=== PATIENT | male | born 1940 | race Caucasian/White ===

== ENCOUNTER 2018-01-23 05:29 | Inpatient (IN) | payer MEDICARE, SELFPAY ==
[2017-12-31 10:06] VITALS: BP 140/73; PULSE 64; RESP 16; TEMP 36.6; O2SAT 98; BMI 31.5
--- NOTE | 2017-12-31 10:18 | SDCEKG_ITS ---
Test Reason : Blood Pressure : / mmHG Vent. Rate : 063 BPM Atrial Rate : 063 BPM P-R Int : 212 ms QRS Dur : 100 ms QT Int : 418 ms P-R-T Axes : 043 054 040 degrees QTc Int : 427 ms Sinus rhythm with 1st degree A-V block Abnormal ECG Confirmed by VIBHA ALSTON, EMILEE ([id number]), purchasing expeditor JAVIER LUONG ([id number]) on 01/04/2018 1:35:30 PM Referred By: Henry Young Confirmed By:EMILEE DUNNE MD
[2017-12-31 10:54] LABS: Absolute Lymphocyte Count 1.35 X10^3/ul (0.83-4.51); Absolute Neutrophil Count 5.1 X10^3/uL (2.0-7.7); Basophil# 0.02 X10^3/uL; Basophil% 0.3 % (0-1); Eosinophil# 0.12 X10^3/uL; Eosinophils% 1.6 % (0-5); Hemoglobin 13.7 g/dl (13.0-16.5); Lymphocyte # 1.35 X10^3/ul (4.0); Lymphocyte % 18.4 % (19-41); Mean Corp Hgb Conc 34.3 g/gl (32-36); Mean Corpuscular Hgb 31.9 pg (27.0-32.0); Mean Platelet Vol. 9.8 fl (6.2-12.0); Monocyte# 0.74 X10^3/uL; Monocyte% 10.1 % (0-10); Neutrophil # 5.08 X10^3/uL (2.7-7.7); Neutrophil % 69.5 % (47-70); Platelet Count 262 K/mm3 (150-450); RBC Distribution Width CV 13.8 % (11.6-14.6); RBC Distribution Width SD 45.9 fl (35.1-43.9); White Blood Count 7.3 K/mm3 (4.4-11.0)
[2017-12-31 10:57] LABS: POSITIVE COUNT NO; POSITIVE DIFFERENTIAL NO; POSITIVE MORPHOLOGY NO
[2017-12-31 11:19] LABS: Anion Gap 6 (5-15); BUN 30 mg/dL (7-18); BUN/Creat Ratio 33.6 RATIO (10-20); Calcium,Total 8.5 mg/dL (8.5-10.1); Chloride 108 mmol/L (98-107); Creatinine, Serum 0.89 mg/dL (0.70-1.30); EST Glomerular Filtration Rate 88 mL/min (>60); Est Glom Filt Rate - Afr Amer 106 mL/min (>60); Estimated Creatinine Clearance 72.91 ml/min; Glucose 91 mg/dL (74-106); Potassium 3.6 mmol/L (3.5-5.1); Sodium Level 140 mmol/L (136-145)
--- NOTE | 2018-01-01 20:39 | PCM.HP.BLA ---
History and Physical DATE OF SURGERY: 01/23/2018 SCHEDULED PROCEDURE: Left Total Knee Arthroplasty HISTORY OF PRESENT ILLNESS: This is a 77-year-old male who is been having ongoing pain in bilateral knees for the past several years. He states it is been progressively becoming worse. Patient's pain is aching in bilateral knees. It is increased with going up and down stairs, walking any amount of distance. Patient does complain of startup pain. Pain is over the medial joint line. Patient has difficult time with walking with activities of daily living. Patient has tried conservative measures consisting of rest with minimal relief. He has tried elevation with no relief in symptoms. Patient has been through formal physical therapy and home exercises with no relief in symptoms. He has been on oral medications consisting of glucosamine/chondroitin with no relief and symptom. He denies previous surgery on bilateral knees. Patient has been using a cane for ambulatory assistance for the past 1 year. He has also tried a brace with no relief in symptoms. Left total hip arthroplasty in June 2017 and is doing well. He did have postoperative urinary retention. Patient does have a history of hypertension as well as blood clot approximately 10 years ago when he had his right total hip replaced. He currently denies any chest pain, shortness of breath, fevers chills, recent infections. We are obtaining surgical clearance from patient's primary care physician Dr. Camejo. After failing conservative measures and discussing all treatment options patient would like to proceed with a left total knee arthroplasty. He is also planning on undergoing a right total knee arthroplasty in February 2018. REVIEW OF SYSTEMS: ROS: Const: Denies change in appetite, fever,or weight change. CV: Denies chest pain, heart murmur and irregular heartbeat. Resp: Denies cough, pneumonia, SOB, tuberculosis and wheezing. GI: Denies constipation, diarrhea, difficulty swallowing, heartburn, nausea, bloody stools and vomiting. : Urinary: denies incontinence. Musculo: Reports limp and trouble walking, but denies leg swelling and weakness. Skin: Denies Raynaud's, history of shingles and tattoo. Neuro: Denies ambulatory dysfunction, dizziness, numbness/tingling and tremor. Psych: Denies anxiety, insomnia and stress. Frederick/Lymph: Denies anemia, bleeding/bruising tendency and past transfusion. Reviewed, no changes. PAST MEDICAL HISTORY: Advance Care Plan: No Advance Directives Effective Date: 05/24/2017 PMH: Medical Problems: High Blood Pressure, Hypercholesterolemia, History Of Phlebitis Accidents: None Surgical Hx: Hernia Repair, Hip Replacement Rt Hip Replacement LT - (06/12/2017) [email or web address] Anesthesia Complications: None Assistive Devices: Cane, Glasses - READING Reviewed, no changes. SOCIAL HISTORY: SH: Marital: .Occupation: Retired.Work Status: Retired.Hand Dominance: Right-handed. Personal Habits: Cigarette Use: Never Smoked Cigarettes.Alcohol: Denies use.Drug Use: Denies Use.Enjoy Exercising: Exercises 1-3 x/month. Reviewed, no changes. VITALS: Ht: 68.5 Wt: 216lb Wt k.978 BMI: 32.4 BP: 132/82 Pulse: 68 Resp: 20 T: 97.3 T: 36.3C ALLERGIES: No Known Drug Allergy MEDICATIONS: Lisinopril-Hydrochlorothiazide 20-25 mg 1 by mouth every day, Lovastatin 20 mg 1 tab PO daily, Flomax 0.4 mg 1 cap PO daily PRE-OP EXAM: General appearance:NORMAL Other: Eyes: Conjunctivae and lids: NORMAL Pupils: ERR Ears, Nose, Mouth, and Throat: NORMAL Other: Inspection of lips, teeth and gums: NORMAL Other: Neck: Examination of neck: no masses noted. Respiratory: Assessment of respiratory effort: NORMAL Other: Auscultation of lungs: clear to auscultation no wheezes, rhonchi or rales. Cardiovascular: Auscultation of heart: regular rate and rhythm, no murmurs, gallops or rubs. Exam of carotid arteries: NORMAL Other: Gastrointestinal: Exam of abdomen: soft, nontender, nondistended bowel sounds present. PHYSICAL EXAMINATION: Examination of the left knee is cold to touch without erythema. Patient does walk with an antalgic gait. He has tenderness to palpation over the medial joint line. Patient does have varus alignment. Range of motion left knee: Lacks 10 of full extension to 120 of flexion. Stable to varus and valgus stress test. Sensation intact to light touch. Neurovascularly intact. IMAGING STUDIES: X-rays of bilateral knees reveals varus alignment with medial joint space narrowing, subchondral sclerosis, and osteophyte formation consistent with severe osteoarthritis. Bilateral knee show bony erosion and medial compartment most severe in the left with tongue and groove erosions. IMPRESSION: 1. Severe left knee osteoarthritis 2. Severe right knee osteoarthritis 3. Hypertension 4. History of blood clot 10 years ago PLAN: Dr. Young did discuss and review with the patient all treatment options including surgical versus nonsurgical options. Patient does wish to proceed with the above-stated procedure. Potential risks, benefits, and complications of the procedure were discussed in detail including but not limited to , infection, nerve and blood vessel damage, persistent pain, numbness, tingling, paresthesias, blood clot, pulmonary embolism, and requirement for possible further surgery. The patient expressed full understanding and has no further questions for the doctor. Patient does agree to proceed with the above-stated procedure and has signed the surgery consent form. ___ I have re-examined the patient. There are no clinical changes since date of exam. ___ See progress notes for changes. ___ Dictated on admission Date: Time: Signature:
--- NOTE | 2018-01-16 13:51 | CASEMGMT ---
Attempted to contact patient regarding discharge needs after upcoming surgery. No answer, message left on home phone answering machine. Latrice Leggett LPN Clinical Support
--- NOTE | 2018-01-21 13:41 | CASEMGMT ---
Rec'd return call from patient. Patient plans to stay with a friend in [place] after surgery as patient lives in [place], [place]. Outpatient physical therapy is set up at [facility], friend will assist with transportation. At friends home, there is 1 step into home, bed and bath on 1st level. Patient will have toilet riser, shower seat, and grab bars at friends house. Patient already has a walker. Patient stated that the doctors office called today and said he needed more labs drawn, patient inquiring if he comes in the front door of [facility], will there be someone to direct him. Informed patient that if he comes in the front door, someone will be able to direct him to the lab. Latrice Leggett LPN Clinical Support
[2018-01-21 17:05] LABS: Albumin, Serum 3.6 g/dL (3.2-5.0)
[2018-01-23] VITALS (14 sets, daily range): BP systolic 114–154; BP diastolic 56–82; PULSE 65–82; RESP 16–18; TEMP 36.1–36.7; O2SAT 95–100; BMI 31.5; BMI 31.4
[2018-01-23] MEDS: Acetaminophen 500 MG Tablet 1000 MG PO ×3 (06:13→22:10)
[2018-01-23] MEDS: Celecoxib 200 MG Capsule 400 MG PO (06:13)
[2018-01-23] MEDS: oxyCODONE HCl Cr 10 MG Tablet PO (06:15)
--- NOTE | 2018-01-23 06:54 | RAD_ITS ---
STUDY: X-RAY - LEFT KNEE REASON FOR EXAM: Male, 77 years old. Postoperative total knee replacement. TECHNIQUE: 2 view(s) of the knee. COMPARISON: None. FINDINGS: Normal visualized distal femur. Normal visualized proximal tibia and fibula. Normal proximal tibiofibular articulation. The patient is status post total knee replacement. There is good alignment. Postoperative soft tissue changes. RAD/Knee 1 or 2 Views IMPRESSION: Status post total knee replacement. There is good alignment. Postoperative soft tissue changes Electronically Signed: Ravi Castro MD at 13:34 EDT Tel [phone], Service support ,
[2018-01-23] MEDS: Scopolamine 1mg/72hr Patch 1 PATCH TD (07:00)
[2018-01-23] MEDS: Cefazolin 2 GM in 0.9% Normal Saline 100 ML IV (07:11)
[2018-01-23] MEDS: Lactated Ringers 1,000 ML 999 ML IV (07:15)
--- NOTE | 2018-01-23 07:22 | OP.PCM_ITS ---
Report of Operation Date of Procedure: 01/23/18 Pre-Operative Diagnosis: Left knee primary osteoarthritis Post-Operative Diagnosis: Left knee primary osteoarthritis Surgery/Procedure Performed:: Left total knee replacement Description of Surgical Findings:: Stable knee with good patella tracking. Cruciate retaining press-fit total knee replacement slimer: Radha Green Type of Anesthesia:: Spinal Anesthesiologist: Rodo Milelr Special Medications: 2 g Ancef, 1 g TXA at incision, 1 g TXA closure, 10 mg Decadron, joint cocktail (5 mg Duramorph, 30 mL of 0.5% Ropivicaine, 1000 units of epinephrine, 30 mg of Toradol) Specimen's removed: 2 g Ancef, 1 g TXA at incision, 1 g TXA closure, 10 mg Decadron, joint cocktail (5 mg Duramorph, 30 mL of 0.5% Ropivicaine, 1000 units of epinephrine, 30 mg of Toradol) Estimated Blood Loss (mL): 75 Fluids Replaced: 1300 ML crystalloid Description of Procedure: Implants used: 1. Hilda size 5 press-fit triathlon cruciate retaining distal femoral component 2. [place] size 6 press-fit tibial baseplate 3. Hilda X3 11 mm CS polyethylene 4. Hilda X3 35 mm asymmetric patella Brief history operative indications: 77-year-old M with history of left knee osteoarthritis with radiographic findings with loss of joint space, osteophyte formation and subchondral sclerosis. Failed conservative measures as mentioned in the H&P. Discussion of total knee arthroplasty as well as risk and benefits were discussed the patient including but not limited to blood loss, DVTs, PEs, neurovascular damage, general risk of anesthesia including loss of life, and stiffness or instability were discussed with patient. Patient demonstrated understanding and was able to sign informed consent. Procedure: On the date of procedure patient's left lower extremity was marked in the preoperative area. The patient was then taken back to the operating room where the patient was placed on the table in the supine position. All bony prominences were identified a well-padded. Anesthesia assumed control of the C-spine and airway and remained controlled throughout the remainder of the procedure. A tourniquet was placed on the left upper thigh and the leg was prepped in a sterile fashion. The surgeon then scrubbed at this time .Upon reentering the room left lower extremity was draped in a standard orthopedic fashion. A timeout was then called and everyone agreed upon the side, the site, the procedure to be performed, patient's identity and antibiotics given. Esmarch bandage was used to exsanguinate the extremity and the tourniquet was placed up to 250 mmHg with the knee in flexion. A midline skin incision was made and sharp dissection was taken down through skin subcutaneous tissue and fat. The standard medial parapatellar incision was made and the patella was subluxed laterally. The standard deep MCL release was done and the fat pad was resected. Next our attention was directed to the femur. Navigation pins were placed, navigation was registered. The distal femoral cutting block was pinned into place and 10 mm of distal femur resection was completed. The distal femoral cut was verified with navigation. The knee was then placed in deep flexion in the standard [employer] sizing guide was used to place the femoral component in 3? external rotation based on the posterior condyles. A size 5 4-in-1 cutting block was selected and pinned into place. The anterior cut was then made and checked for notching. The subsequent anterior chamfer cuts, posterior condylar cuts and posterior chamfer cuts were made while ensuring the MCL and LCL were protected. Our attention was then turned to the tibia where the navigation pins were placed, navigation was registered. [employer] tibial cutting guide was used to make the appropriate tibial cut 90 degrees from the mechanical axis. Navigation was then used to verify the cut. A size 6 tibial base plate was selected. the knee was flexed to 90 degrees and the soft tissues and posterior osteophytes were removed from the joint. 40 cc of the periarticular injection was injected into the posterior medial corner of the joint. The appropriate trials were then placed on the femur and tibia. A trial polyethylene was trialed to ensure proper balancing and stability of the knee. Patella tracking, was then verified and corrected appropriately as needed. The appropriate tibial internal rotation was then marked with a bovie. Our attention was then directed to the patella. The patella was everted and a flat resection was made. The lug holes were drilled and the patella trial was placed. Patellar tracking was checked and deemed appropriate. Once we were happy lug holes were drilled for the femur and trial components were removed. Cement was mixed at this time and the tourniquet was let down the tibia was subluxed and pinned into place and the keel was punched and the canal was reamed. Final components were verified and opened, and cement was mixed in a vacuum. Hilda Simplex cement was used. The wound was copiously irrigated with normal saline. When the cement was ready the press-fit components were impacted into place starting with the tibia, femur and finally the patella cemented into place. The trial poly component was placed and the knee was placed in full extension. All excess cement was removed in the process. Once the cement had cured the tracking, alignment and balance were verified and a size 11 mm polyethylene component was placed. Once the final components were placed the wound was copiously irrigated with normal saline solution and the periarticular injection was given. The wound was closed in a layer bridges fashion using #1 vicryl interrupted sutures for the arthrotomy, 2-0 interrupted Vicryl suture for the subcuticular layer and corby for final skin closure. A sterile compressive dressing was then placed. The patient was then awakened from anesthesia, transferred to the [place] and transferred to the PACU for recovery. Post op plan DVT ppx: ASA 81mg, thigh high compression stockings Follow up: in office in 2 weeks for wound check PT: to start POD #0 at hospital, outpatient PT should be arranged. Grafts/Implants Used: [place] triathlon press-fit cruciate retaining - Complications None - Admit VTE Documentation VTE Present on Admission: No VTE Mechan Device Prophylaxis: SCD's, Thigh High SNEHA Hose VTE Pharm Prophylaxis ordered?: Yes
[2018-01-23] MEDS: Lactated Ringers 1,000 ML 125 ML IV (11:38)
[2018-01-23] MEDS: Famotidine 20 MG Tablet PO (11:40)
[2018-01-23] MEDS: Lisinopril 20 MG Tablet PO (11:40)
[2018-01-23] MEDS: hydroCHLOROthiazide 25 MG Tablet PO (11:40)
[2018-01-23] MEDS: Cefazolin 1 GM/50 ML BAG IV ×2 (15:00→22:10)
[2018-01-23] MEDS: Aspirin 81 MG TAB.CHEW PO (16:40)
[2018-01-23] MEDS: Tamsulosin HCl 0.4 MG Capsule PO (16:41)
[2018-01-23] MEDS: Senna/Docusate Sodium 1 Tablet 2 TABLET PO (22:10)
[2018-01-23] MEDS: Atorvastatin Calcium 10 MG Tablet 5 MG PO (22:11)
[2018-01-24 02:09] VITALS: BP 129/74; PULSE 66; RESP 18; TEMP 36.6; O2SAT 98
[2018-01-24] MEDS: Acetaminophen 500 MG Tablet 1000 MG PO ×2 (05:07→14:18)
--- NOTE | 2018-01-24 05:22 | NURSING ---
barcenas cath d/c. pt given a urinal. pt denies any complaints at this time
[2018-01-24 06:52] LABS: Hematocrit 34.4 % (40-54); Hemoglobin 11.7 g/dl (13.0-16.5); Mean Corpuscular Hgb 31.6 pg (27.0-32.0); Mean Platelet Vol. 9.7 fl (6.2-12.0); Platelet Count 237 K/mm3 (150-450); RBC Distribution Width CV 13.1 % (11.6-14.6); RBC Distribution Width SD 43.1 fl (35.1-43.9); White Blood Count 14.7 K/mm3 (4.4-11.0)
[2018-01-24 07:03] LABS: Scan Indicated on CBC? Y/N NO
[2018-01-24 07:05] LABS: BUN 15 mg/dL (7-18); Creatinine, Serum 0.92 mg/dL (0.70-1.30); EST Glomerular Filtration Rate 85 mL/min (>60); Estimated Creatinine Clearance 70.53 ml/min; Glucose 101 mg/dL (74-106)
[2018-01-24 07:06] LABS: Anion Gap 8 (5-15); BUN/Creat Ratio 16.4 RATIO (10-20); Calcium,Total 8.8 mg/dL (8.5-10.1); Chloride 108 mmol/L (98-107); Est Glom Filt Rate - Afr Amer 103 mL/min (>60); Potassium 3.6 mmol/L (3.5-5.1); Sodium Level 141 mmol/L (136-145)
[2018-01-24] MEDS: Lisinopril 20 MG Tablet PO (08:05)
[2018-01-24] MEDS: Senna/Docusate Sodium 1 Tablet 2 TABLET PO (08:05)
[2018-01-24] MEDS: Famotidine 20 MG Tablet PO (08:06)
[2018-01-24] MEDS: hydroCHLOROthiazide 25 MG Tablet PO (08:06)
[2018-01-24 08:10] VITALS: BP 133/65; PULSE 85; RESP 16; TEMP 36.9; O2SAT 99
--- NOTE | 2018-01-24 08:17 | PN.ORTHO_ITS ---
Subjective: The patient was sitting in bedside chair upon examination. Patient denies any chest pain, shortness of breath, dizziness, lightheadedness, nausea or vomiting, or calf pain. Pain is controlled on medications. No adverse overnight events. Overall patient is doing well. Plan is for him to go home when ready. Patient would like to try to go home today. Objective: Vital signs stable and afebrile. Patient is able to plantarflex and dorsiflex actively. Sensation is intact to light touch to saphenous, sural, superficial and deep peroneal, and tibial distribution. Dressing is clean dry and intact. Negative Homans bilaterally, negative signs and symptoms of DVT. - Physical Exam General: Alert, Oriented x3, Cooperative, No apparent distress Vital Signs Temp Pulse Resp BP Pulse Ox 97.8 F 66 18 129/74 H 98 01/24/18 02:09 01/24/18 02:09 01/24/18 02:09 01/24/18 02:09 01/24/18 02:09 Oxygen Delivery Method Room Air Weight: 99.5 kg Body Mass Index (BMI) 31.4 Intake and Output for Last 24 Hours 01/22/18 01/23/18 01/24/18 23:59 23:59 23:59 Intake Total 3111 / 3111 583 / 583 Output Total 2450 / 2450 800 / 800 Balance 661 / 661 -217 / -217 Laboratory Tests Past 24 Hrs 01/24/18 01/24/18 06:30 06:30 WBC 14.7 H RBC 3.70 L Hgb 11.7 L Hct 34.4 L MCV 93.0 MCH 31.6 MCHC 34.0 RDW 13.1 RDW Differential 43.1 Plt Count 237 MPV 9.7 Sodium 141 Potassium 3.6 Chloride 108 H Carbon Dioxide 25.0 Anion Gap 8 BUN 15 Creatinine 0.92 Estim Creat Clear Calc 70.53 Est GFR (MDRD) Af Amer 103 Est GFR (MDRD) Non-Af 85 BUN/Creatinine Ratio 16.4 Glucose 101 Calcium 8.8 Medical Necessity - Tobacco Use Smoking Status: Never smoker Tobacco Use: Non-smoker Assessment/Plan 1. S/P left total knee arthroplasty POD #1 2. Continue Pain Medications: Tylenol and oxycodone 3. DVT Prophylaxis: Xarelto times 2 weeks, patient has had a previous blood clot years ago. At 2-week follow-up will be switched over to baby aspirin 81 mg twice daily for an additional 2 weeks. 4. PT/OT: Weightbearing as tolerated 5. H & H: 11.7/34.4, asymptomatic 6. Encouraged Incentive Spirometry 7. Disposition: Orthopedically stable, plan will be for discharge home today if patient tolerates physical therapy and pain is well controlled. Prescriptions will be E scribed to [facility]. Patient will follow-up per postop instructions.
--- NOTE | 2018-01-24 08:26 | DCINST_ITS ---
Discharge Diet: No Restrictions Discharge Activity: May Not Drive May shower in (days): 1 - Turned dressing away from water Ice area for (Minutes): 20 - every hour while awake. Weight Bearing Status: Weight bearing as tolerated Elevate: Operative Extremity Additional Activity Instructions:: Wear elastic stockings for 2 weeks after your surgery. Call your doctor if your incision/area has: Continuous Slow Oozing, Sudden Increased Bleeding, Increased Pain/ Swelling, Increased Redness, Foul Smelling Discharge Call your doctor if you observe: Fever of 101 or Higher, Coldness, Increased Pain, Numbness or Tingling, Change in Color, Calf discomfort, Uncontrolled pain Remove Dressing in (days):: 4 - Okay to remove on January 28, 2018 Additional Instructions: Follow [facility] sports medicine postop instructions Allergies/Adverse Reactions: Allergies No Known Allergies Allergy (Verified 01/23/18 05:56) Medications to take at Discharge Lisinopril/Hydrochlorothiazide [Zestoretic 20/25 Tablet] 1 tablet PO DAILY 12/31/17 Lovastatin [Mevacor] 20 mg PO DAILY 12/31/17 Tamsulosin HCl [Flomax] 0.4 mg PO DAILY 12/31/17 Acetaminophen [Tylenol] 1,000 mg PO Q8 #90 tablet 01/24/18 Famotidine [Pepcid] 20 mg PO DAILY #30 tablet 01/24/18 Oxycodone [Oxyir] 5 - 10 mg PO Q4H PRN PRN 5 Days #60 tablet 01/24/18 Rivaroxaban [Xarelto] 10 mg PO DAILY@1700 #12 tablet 01/24/18 Senna/Docusate Sodium [Senokot-S] 2 tablet PO BID #20 tablet 01/24/18 The following prescriptions were given: Oxycodone [Oxyir] 5 - 10 mg PO Q4H PRN PRN 5 Days #60 tablet PRN Reason: Mod-Severe Pain (4-01/16) Acetaminophen [Tylenol] 1,000 mg PO Q8 #90 tablet Famotidine [Pepcid] 20 mg PO DAILY #30 tablet Rivaroxaban [Xarelto] 10 mg PO DAILY@1700 #12 tablet Senna/Docusate Sodium [Senokot-S] 2 tablet PO BID #20 tablet Primary Care Physician: Nicholas Camejo [Primary Care Provider] - Test Results: Test results from this visit will be discussed in further detail at your follow- up appointment, if applicable. Please Follow Up With: Physical therapy at [facility] When: 01/28/18 @ 8:30 am with Regan Please Follow Up With: Morro Gongora PA-C When: 02/04/18 @ 8:15 am
--- NOTE | 2018-01-24 11:25 | CASEMGMT ---
VIVIANE KESSLER Face to Face with patient for initial transition planning/care coordination assessment. RN CM introduced self and role at [facility]. Patient sitting in chair, alert and oriented. Patient willing to participate in assessment and is able to answer all questions appropriately. Care providers, pharmacy, and demographics verified. Patient wishes to discharge to friends home with outpatient therapy with [facility]. Patient states that he has a walker at home. Patient states he has no further needs or concerns at this time. CM to follow for discharge planning needs that may arise. Disposition Plan: Patient to discharge home with outpatient therapy, support from friend, and follow-up plans in place. Breana COOL, RN, CM
[2018-01-24 14:15] VITALS: BP 122/71; PULSE 69; RESP 16; TEMP 36.8
== END 2018-01-24 15:00 | disposition home or self-care (01) | DRG 470 ==
LOC: ACINP 05:31 → MS3 08:05
PROVIDERS: Admitting Provider Specialist; Family Provider Family Medicine; PCP Family Medicine; Referring Provider Specialist; Visit Provider Specialist
PROC: 0SRD0J9 Replacement of Left Knee Joint with Synthetic Substitute, Cemented, Open Approach (ICD-10-PCS; CPT 27447; principal; 2018-01-23 06:45)
DX: M17.0 Bilateral primary osteoarthritis of knee (principal); I10 Essential (primary) hypertension; Z86.718 Personal history of other venous thrombosis and embolism; Z23 Encounter for immunization
CPT/HCPCS: 36415; 73560; 80048; 82040; 85025; 85027; 87081; 93005; 97110; 97162; 97166; 97530; 99251; C1776; J7120; 90686; G0463

== ENCOUNTER 2018-03-06 06:47 | Inpatient (IN) | payer MEDICARE, SELFPAY ==
--- NOTE | 2018-02-11 08:40 | HP.PCM_ITS ---
History and Physical DATE OF SURGERY: 03/06/2018 SCHEDULED PROCEDURE: Right Total Knee Arthroplasty HISTORY OF PRESENT ILLNESS: This is a 77-year-old male who has been having ongoing pain in bilateral knees for the past several years. Patient underwent a left total knee arthroplasty on January 23, 2018. He is doing well with regards to the left knee. Patient continues to have ongoing pain in the right knee. Pain is intermittent. He has increased pain going up and down stairs. Patient has difficult time with activities of daily living including walking any amount of distance. She feels unsafe using power equipment such as Whiteyboard. Patient does complain of pain over the medial aspect of the right knee. He does have start up pain. Patient has been through formal physical therapy and home exercises with no relief in symptoms. He has tried rest and ice with elevation with no relief in symptoms. Patient has tried oral medications consisting of glucosamine/chondroitin with no relief in symptoms. He denies previous history of surgery on the right knee. Patient is currently using a walker postoperatively from the left knee. He was required a cane prior to his previous surgery. Patient has tried a brace in the past. Patient does have a medical history pertinent for hypertension, BPH, and a blood clot approximately 10 years ago when he had his right total hip replaced. We have obtained clearance from patient's primary care physician. After failing conservative measures and discussing all treatment options with Dr. Henry Young, the patient does wish to proceed with a right total knee arthroplasty. Patient currently denies any chest pain, shortness of breath, fevers chills, recent infections. REVIEW OF SYSTEMS: ROS: Const: Denies change in appetite, fever,or weight change. CV: Denies chest pain, heart murmur and irregular heartbeat. Resp: Denies cough, pneumonia, SOB, tuberculosis and wheezing. GI: Denies constipation, diarrhea, difficulty swallowing, heartburn, nausea, bloody stools and vomiting. : Urinary: denies incontinence. Musculo: Reports limp and trouble walking, but denies leg swelling and weakness. Skin: Denies Raynaud's, history of shingles and tattoo. Neuro: Denies ambulatory dysfunction, dizziness, numbness/tingling and tremor. Psych: Denies anxiety, insomnia and stress. Frederick/Lymph: Denies anemia, bleeding/bruising tendency and past transfusion. Reviewed, no changes. PAST MEDICAL HISTORY: Advance Care Plan: No Advance Directives Effective Date: 05/24/2017 PMH: Medical Problems: High Blood Pressure, Hypercholesterolemia, History Of Phlebitis, BPH Accidents: None Surgical Hx: Hernia Repair, Hip Replacement Rt Hip Replacement LT - (06/12/2017) SAW@[facility] LT TKR - (01/23/2018) SAW @ [facility] Anesthesia Complications: None Assistive Devices: Cane, Glasses - READING Reviewed and updated. SOCIAL HISTORY: SH: Marital: .Occupation: Retired.Work Status: Retired.Hand Dominance: Right-handed. Personal Habits: Cigarette Use: Never Smoked Cigarettes.Alcohol: Denies use.Drug Use: Denies Use.Enjoy Exercising: Exercises 1-3 x/month. Reviewed, no changes. VITALS: Ht: 68.5 Wt: 215lb Wt k.524 BMI: 32.2 BP: 124/66 Pulse: 62 Resp: 20 T: 98.6 T: 37.0C ALLERGIES: No Known Drug Allergy MEDICATIONS: Lisinopril-Hydrochlorothiazide 20-25 mg 1 by mouth every day, Lovastatin 20 mg 1 tab PO daily, Flomax 0.4 mg 1 cap PO daily, Oxycodone HCL 5 mg 1 by mouth every 6 hours PRE-OP EXAM: General appearance:NORMAL Other: Eyes: Conjunctivae and lids: NORMAL Pupils: ERR Ears, Nose, Mouth, and Throat: NORMAL Other: Inspection of lips, teeth and gums: NORMAL Other: Neck: Examination of neck: no masses noted. Respiratory: Assessment of respiratory effort: NORMAL Other: Auscultation of lungs: clear to auscultation no wheezes, rhonchi or rales. Cardiovascular: Auscultation of heart: regular rate and rhythm, no murmurs, gallops or rubs. Exam of carotid arteries: NORMAL Other: Gastrointestinal: Exam of abdomen: soft, nontender, nondistended bowel sounds present. PHYSICAL EXAMINATION: Patient does walk with a limping gait. Patient just did undergo a previous left total knee arthroplasty. Right knee has tenderness to palpation over the medial joint line. There is no effusion. Patient does have varus alignment. Range of motion: 0 of extension to 120 of flexion. Stable to varus/valgus stress test. Sensation intact to light touch. Neurovascularly intact. Left knee shows incision healing well without erythema or signs of infection. IMAGING STUDIES: X-rays of the right knee do reveal varus alignment with medial joint space narrowing, subchondral sclerosis, and osteophyte formation consistent with severe osteoarthritis. There is bony erosion in the medial compartment with tongue and groove erosions. IMPRESSION: 1. Severe right knee osteoarthritis 2. Postoperative left total knee arthroplasty 3. Hypertension 4. Hypercholesterolemia 5. BPH PLAN: Dr. Henry Young did discuss and review with the patient all treatment options including surgical versus nonsurgical options. Patient does wish to proceed with the above-stated procedure. Potential risks, benefits, and complications of the procedure were discussed in detail including but not limited to , infection, nerve and blood vessel damage, persistent pain, numbness, tingling, paresthesias, blood clot, pulmonary embolism, and requirement for possible further surgery. The patient expressed full understanding and has no further questions for the doctor. Patient does agree to proceed with the above-stated procedure and has signed the surgery consent form. This dictation was created using voice recognition software. Phonetic and/or grammatical errors may exist.. ___ I have re-examined the patient. There are no clinical changes since date of exam. ___ See progress notes for changes. ___ Dictated on admission Date: Time: Signature:
[2018-02-11 10:15] VITALS: BP 117/68; PULSE 73; RESP 16; TEMP 37.2; O2SAT 96; BMI 32.2
[2018-02-11 11:17] LABS: Absolute Lymphocyte Count 1.16 X10^3/ul (0.83-4.51); Absolute Neutrophil Count 5.6 X10^3/uL (2.0-7.7); Basophil# 0.02 X10^3/uL; Basophil% 0.3 % (0-1); Eosinophils% 1.3 % (0-5); Hematocrit 36.4 % (40-54); Hemoglobin 11.9 g/dl (13.0-16.5); Lymphocyte # 1.16 X10^3/ul (4.0); Lymphocyte % 15.6 % (19-41); Mean Corp Hgb Conc 32.7 g/gl (32-36); Mean Corpuscular Volume 94.8 fL (80-94); Mean Platelet Vol. 8.8 fl (6.2-12.0); Monocyte# 0.52 X10^3/uL; Neutrophil % 75.5 % (47-70); Platelet Count 445 K/mm3 (150-450); RBC Distribution Width CV 13.7 % (11.6-14.6); RBC Distribution Width SD 47.5 fl (35.1-43.9); Red Blood Count 3.84 M/mm3 (4.6-6.2); White Blood Count 7.4 K/mm3 (4.4-11.0)
[2018-02-11 11:23] LABS: POSITIVE COUNT NO; POSITIVE DIFFERENTIAL NO; POSITIVE MORPHOLOGY NO
[2018-02-11 11:45] LABS: Anion Gap 8 (5-15); BUN 27 mg/dL (7-18); BUN/Creat Ratio 33.5 RATIO (10-20); Calcium,Total 8.7 mg/dL (8.5-10.1); Chloride 105 mmol/L (98-107); EST Glomerular Filtration Rate 99 mL/min (>60); Est Glom Filt Rate - Afr Amer 120 mL/min (>60); Glucose 102 mg/dL (74-106); Potassium 3.7 mmol/L (3.5-5.1); Sodium Level 136 mmol/L (136-145)
[2018-03-06] VITALS (15 sets, daily range): BP systolic 88–125; BP diastolic 48–89; PULSE 55–94; RESP 14–18; TEMP 36.5–37.2; O2SAT 95–100; BMI 32.2
[2018-03-06] MEDS: Celecoxib 200 MG Capsule 400 MG PO (07:29)
[2018-03-06] MEDS: Acetaminophen 500 MG Tablet 1000 MG PO ×3 (07:30→21:24)
[2018-03-06] MEDS: Lactated Ringers 1,000 ML 999 ML IV ×2 (08:10→09:45)
[2018-03-06] MEDS: Cefazolin 2 GM in 0.9% Normal Saline 100 ML IV (09:15)
--- NOTE | 2018-03-06 10:22 | OP.PCM_ITS ---
Report of Operation Date of Procedure: 03/06/18 Pre-Operative Diagnosis: Right knee primary osteoarthritis Post-Operative Diagnosis: Right knee primary osteoarthritis Surgery/Procedure Performed:: Right cruciate retaining press-fit total knee replacement Description of Surgical Findings:: Stable knee with good patella tracking home day care provider: Radha Green Type of Anesthesia:: Spinal Anesthesiologist: Rodo Miller Special Medications: 2 g Ancef, 1 g TXA at incision, 1 g TXA closure, 10 mg Decadron, joint cocktail (5 mg Duramorph, 30 mL of 0.5% Ropivicaine, 1000 units of epinephrine, 30 mg of Toradol) Specimen's removed: Bony cuts Estimated Blood Loss (mL): 60 Fluids Replaced: 1600 mL crystalloid Description of Procedure: Implants used: 1. Hilda size 5 press-fit triathlon cruciate retaining distal femoral component 2. Hilda size 6 press-fit tibial baseplate 3. Hilda X3 11 mm CS polyethylene 4. Hilda X3 35 mm asymmetric patella Brief history operative indications: 77-year-old m with history of Right knee osteoarthritis with radiographic findings with loss of joint space, osteophyte formation and subchondral sclerosis. Failed conservative measures as mentioned in the H&P. Discussion of total knee arthroplasty as well as risk and benefits were discussed the patient including but not limited to blood loss, DVTs, PEs, neurovascular damage, general risk of anesthesia including loss of life, and stiffness or instability were discussed with patient. Patient demonstrated understanding and was able to sign informed consent. Procedure: On the date of procedure patient's right lower extremity was marked in the preoperative area. The patient was then taken back to the operating room where the patient was placed on the table in the supine position. All bony prominences were identified a well-padded. Anesthesia assumed control of the C-spine and airway and remained controlled throughout the remainder of the procedure. A tourniquet was placed on the right upper thigh and the leg was prepped in a sterile fashion. The surgeon then scrubbed at this time .Upon reentering the room right lower extremity was draped in a standard orthopedic fashion. A timeout was then called and everyone agreed upon the side, the site, the procedure to be performed, patient's identity and antibiotics given. Esmarch bandage was used to exsanguinate the extremity and the tourniquet was placed up to 250 mmHg with the knee in flexion. A midline skin incision was made and sharp dissection was taken down through skin subcutaneous tissue and fat. The standard medial parapatellar incision was made and the patella was subluxed laterally. The standard deep MCL release was done and the fat pad was resected. Next our attention was directed to the femur. Navigation pins were placed, navigation was registered. The distal femoral cutting block was pinned into place and 9 mm of distal femur resection was completed. The distal femoral cut was verified with navigation. The knee was then placed in deep flexion in the standard Fusion-io sizing guide was used to place the femoral component in 3? external rotation based on the posterior condyles. A size 5 4-in-1 cutting block was selected and pinned into place. The anterior cut was then made and checked for notching. The subsequent anterior chamfer cuts, posterior condylar cuts and posterior chamfer cuts were made while ensuring the MCL and LCL were protected. Our attention was then turned to the tibia where the navigation pins were placed, navigation was registered. [employer] tibial cutting guide was used to make the appropriate tibial cut 90 degrees from the mechanical axis. Navigation was then used to verify the cut. A size 6 tibial base plate was selected. the knee was flexed to 90 degrees and the soft tissues and posterior osteophytes were removed from the joint. 40 cc of the periarticular injection was injected into the posterior medial corner of the joint. The appropriate trials were then placed on the femur and tibia. A trial polyethylene was trialed to ensure proper balancing and stability of the knee. Patella tracking, was then verified and corrected appropriately as needed. The appropriate tibial internal rotation was then marked with a bovie. Our attention was then directed to the patella. The patella was everted and a flat resection was made. The lug holes were drilled and the patella trial was placed. Patellar tracking was checked and deemed appropriate. Once we were happy lug holes were drilled for the femur and trial components were removed. Cement was mixed at this time and the tourniquet was let down the tibia was subluxed and pinned into place and the keel was punched and the canal was reamed. Final components were verified and opened, and cement was mixed in a vacuum. Delcambre Simplex cement was used. The wound was copiously irrigated with normal saline. When the cement was ready the press-fit components were impacted into place starting with the tibia, femur and finally the patella cemented into place. The trial poly component was placed and the knee was placed in full extension. All excess cement was removed in the process. Once the cement had cured the tracking, alignment and balance were verified and a size 11 mm polyethylene component was placed. Once the final components were placed the wound was copiously irrigated with normal saline solution and the periarticular injection was given. The wound was closed in a layer bridegs fashion using #1 vicryl interrupted sutures for the arthrotomy, 2-0 interrupted Vicryl suture for the subcuticular layer and corby for final skin closure. A sterile compressive dressing was then placed. The patient was then awakened from anesthesia, transferred to the rvidalia and transferred to the PACU for recovery. Post op plan DVT ppx: Xarelto due to previous DVT, thigh high compression stockings Follow up: in office in 2 weeks for wound check PT: to start POD #0 at hospital, outpatient PT should be arranged. vision. Grafts/Implants Used: Delcambre triathlon press-fit - Complications None - Admit VTE Documentation VTE Present on Admission: No VTE Mechan Device Prophylaxis: SCD's, Thigh High SNEHA Hose VTE Pharm Prophylaxis ordered?: Yes
--- NOTE | 2018-03-06 11:25 | RAD_ITS ---
STUDY: X-RAY - RIGHT KNEE REASON FOR EXAM: Male, 77 years old. Total knee replacement. TECHNIQUE: 2 view(s) of the knee. COMPARISON: None. FINDINGS: Normal visualized distal femur. Normal visualized proximal tibia and fibula. Normal proximal tibiofibular articulation. The patient is status post total knee replacement. There is good alignment. Postoperative soft tissue changes. RAD/Knee 1 or 2 Views IMPRESSION: Status post total knee replacement. There is good alignment. Postoperative soft tissue changes. Electronically Signed: Ravi Castro MD at 12:53 EST Tel [phone], Service support ,
[2018-03-06] MEDS: Scopolamine 1mg/72hr Patch 1 PATCH TD (12:44)
[2018-03-06] MEDS: Tamsulosin HCl 0.4 MG Capsule PO (12:45)
[2018-03-06] MEDS: Lactated Ringers 1,000 ML 125 ML IV (12:47)
--- NOTE | 2018-03-06 13:46 | CPS ---
STARTED BY NURSING
[2018-03-06] MEDS: Ferrous Sulfate 325 MG Tablet PO (17:12)
[2018-03-06] MEDS: Cefazolin 1 GM/50 ML BAG IV (17:12)
[2018-03-06] MEDS: Folic Acid 1 MG Tablet PO (17:12)
[2018-03-06] MEDS: Rivaroxaban 10 MG Tablet PO (17:12)
--- NOTE | 2018-03-06 19:15 | NURSING ---
Assisted primary RN by bladder scanning patient per her request. Notified that result was 315. Patient educated on necessity for barcenas and agreed for same to be completed. Pt verbalized that he had one before. Notified by primary RN that order in place for barcenas insertion for retention. This RN inserted barcenas catheter via sterile technique with immediate return of 375cc. clear yellow urine. Pt tolerated well and denied further needs.
[2018-03-06] MEDS: Senna/Docusate Sodium 1 Tablet 2 TABLET PO (21:24)
[2018-03-06] MEDS: Atorvastatin Calcium 10 MG Tablet 5 MG PO (21:24)
[2018-03-06] MEDS: Meloxicam 7.5 MG Tablet PO (21:24)
[2018-03-07] MEDS: Lactated Ringers 1,000 ML 125 ML IV (00:10)
[2018-03-07] MEDS: Cefazolin 1 GM/50 ML BAG IV (00:10)
[2018-03-07 02:00] VITALS: BP 115/66; PULSE 93; RESP 16; TEMP 36.8; O2SAT 98
[2018-03-07] MEDS: Acetaminophen 500 MG Tablet 1000 MG PO ×2 (06:09→13:03)
[2018-03-07] MEDS: oxyCODONE 5 MG Tablet PO (06:11)
[2018-03-07 06:14] LABS: Hematocrit 31.8 % (40-54); Hemoglobin 10.5 g/dl (13.0-16.5); Mean Corpuscular Hgb 31.5 pg (27.0-32.0); Mean Corpuscular Volume 95.5 fL (80-94); Mean Platelet Vol. 9.7 fl (6.2-12.0); Platelet Count 226 K/mm3 (150-450); RBC Distribution Width CV 14.1 % (11.6-14.6); RBC Distribution Width SD 46.5 fl (35.1-43.9); Red Blood Count 3.33 M/mm3 (4.6-6.2); White Blood Count 10.2 K/mm3 (4.4-11.0)
[2018-03-07 06:17] LABS: Anion Gap 8 (5-15); BUN 19 mg/dL (7-18); BUN/Creat Ratio 25.4 RATIO (10-20); Calcium,Total 8.2 mg/dL (8.5-10.1); Chloride 106 mmol/L (98-107); Creatinine, Serum 0.75 mg/dL (0.70-1.30); EST Glomerular Filtration Rate 108 mL/min (>60); Est Glom Filt Rate - Afr Amer 130 mL/min (>60); Glucose 114 mg/dL (74-106); Potassium 3.7 mmol/L (3.5-5.1); Sodium Level 139 mmol/L (136-145)
[2018-03-07 06:36] LABS: Scan Indicated on CBC? Y/N NO
--- NOTE | 2018-03-07 09:04 | PCM.PN.ORT ---
Subjective: The patient was sitting in bedside chair upon examination. Patient denies any chest pain, shortness of breath, dizziness, lightheadedness, nausea or vomiting, or calf pain. Pain is controlled on medications. No adverse overnight events. Patient currently has catheter. Patient underwent a previous left total knee arthroplasty in January 2018. Patient did require catheter postoperative day 1. This was pulled postoperatively day 1 and patient was able to void on his own. He was discharged postoperative day 1. Patient does currently take Flomax. Overall patient is doing well and does wish to try to go home today if able. Objective: Vital signs stable and afebrile. Patient is able to plantarflex and dorsiflex actively. Sensation is intact to light touch to saphenous, sural, superficial and deep peroneal, and tibial distribution. Dressing is clean dry and intact. Negative Homans bilaterally, negative signs and symptoms of DVT. - Physical Exam General: Alert, Oriented x3, Cooperative, No apparent distress Vital Signs Temp Pulse Resp BP Pulse Ox 98.2 F 93 16 115/66 98 03/07/18 02:00 03/07/18 02:00 03/07/18 02:00 03/07/18 02:00 03/07/18 02:00 Oxygen Delivery Method Room Air Weight: 97.5 kg Body Mass Index (BMI) 32.2 Intake and Output for Last 24 Hours 03/05/18 03/06/18 03/07/18 23:59 23:59 23:59 Intake Total 2700 / 2700 2165 / 2165 Output Total 300 / 300 1650 / 1650 Balance 2400 / 2400 515 / 515 Laboratory Tests Past 24 Hrs 03/07/18 03/07/18 05:36 05:36 WBC 10.2 RBC 3.33 L Hgb 10.5 L Hct 31.8 L MCV 95.5 H MCH 31.5 MCHC 33.0 RDW 14.1 RDW Differential 46.5 H Plt Count 226 MPV 9.7 Sodium 139 Potassium 3.7 Chloride 106 Carbon Dioxide 25.0 Anion Gap 8 BUN 19 H Creatinine 0.75 Estim Creat Clear Calc 60.80 Est GFR (MDRD) Af Amer 130 Est GFR (MDRD) Non-Af 108 BUN/Creatinine Ratio 25.4 H Glucose 114 H Calcium 8.2 L Medical Necessity - Tobacco Use Smoking Status: Never smoker Assessment/Plan 1. S/P right total knee arthroplasty POD #1 2. Continue Pain Medications: Tylenol and OxyIR 3. DVT Prophylaxis: Xarelto times 2 weeks, patient has history of previous blood clot 4. PT/OT: Weightbearing as tolerated 5. H & H: 10.5/31.8, asymptomatic 6. Encouraged Incentive Spirometry 7. Disposition: Patient currently with catheter in place. Plan will be for removal of catheter this morning. If patient is able to void on his own plan will be for discharge home this afternoon. If patient is not able to void possible urology consult. Prescriptions will be E scribed to [facility]. Patient will follow-up per postop instructions.
--- NOTE | 2018-03-07 09:16 | DCINST_ITS ---
Discharge Diet: No Restrictions Discharge Activity: May Not Drive May shower in (days): 1 - Turned dressing away from water Ice area for (Minutes): 20 - every hour while awake. Weight Bearing Status: Weight bearing as tolerated Elevate: Operative Extremity Additional Activity Instructions:: Wear elastic stockings for 2 weeks after your surgery. Call your doctor if your incision/area has: Continuous Slow Oozing, Sudden Increased Bleeding, Increased Pain/ Swelling, Increased Redness, Foul Smelling Discharge Call your doctor if you observe: Fever of 101 or Higher, Coldness, Increased Pain, Numbness or Tingling, Change in Color, Calf discomfort, Uncontrolled pain Remove Dressing in (days):: 4 - Okay to remove on March 11, 2018 Additional Instructions: Follow [facility] postop instructions Allergies/Adverse Reactions: Allergies No Known Allergies Allergy (Verified 03/06/18 07:15) Medications to take at Discharge Lisinopril/Hydrochlorothiazide [Zestoretic 20/25 Tablet] 1 tablet PO DAILY 12/31/17 Lovastatin [Mevacor] 20 mg PO DAILY 12/31/17 Tamsulosin HCl [Flomax] 0.4 mg PO DAILY 12/31/17 Acetaminophen [Tylenol] 1,000 mg PO Q8 #90 tablet 03/07/18 Famotidine [Pepcid] 20 mg PO DAILY #30 tablet 03/07/18 Meloxicam [Mobic] 7.5 mg PO BID #60 tablet 03/07/18 Oxycodone [Oxyir] 5 - 10 mg PO Q4H PRN PRN 5 Days #60 tablet 03/07/18 Rivaroxaban [Xarelto] 10 mg PO DAILY@1700 #11 tablet 03/07/18 Senna/Docusate Sodium [Senokot-S] 2 tablet PO BID #20 tablet 03/07/18 The following prescriptions were given: Oxycodone [Oxyir] 5 - 10 mg PO Q4H PRN PRN 5 Days #60 tablet PRN Reason: Mod-Severe Pain (-01/16) Acetaminophen [Tylenol] 1,000 mg PO Q8 #90 tablet Famotidine [Pepcid] 20 mg PO DAILY #30 tablet Rivaroxaban [Xarelto] 10 mg PO DAILY@1700 #11 tablet Meloxicam [Mobic] 7.5 mg PO BID #60 tablet Senna/Docusate Sodium [Senokot-S] 2 tablet PO BID #20 tablet Primary Care Physician: Nicholas Camejo [Primary Care Provider] - Test Results: Test results from this visit will be discussed in further detail at your follow- up appointment, if applicable. Please Follow Up With: [facility] When: 03/11/18 @ 8:00 am Please Follow Up With: Morro Gongora PA-C When: 03/18/18 @ 9:00 am
[2018-03-07 09:35] VITALS: BP 128/59; PULSE 80; RESP 16; TEMP 36.9; O2SAT 94
[2018-03-07] MEDS: Meloxicam 7.5 MG Tablet PO (09:41)
[2018-03-07] MEDS: Senna/Docusate Sodium 1 Tablet 2 TABLET PO (09:41)
[2018-03-07] MEDS: Lisinopril 20 MG Tablet PO (09:41)
[2018-03-07] MEDS: Folic Acid 1 MG Tablet PO (09:41)
[2018-03-07] MEDS: Famotidine 20 MG Tablet PO (09:41)
[2018-03-07] MEDS: hydroCHLOROthiazide 25 MG Tablet PO (09:41)
--- NOTE | 2018-03-07 11:55 | CASEMGMT ---
RN [facility] Face to Face with patient for initial transition planning/care coordination assessment. RN CM introduced self and role at [facility]. Patient lying in bed, alert and oriented. Patient willing to participate in assessment and is able to answer all questions appropriately. Care providers, pharmacy, and demographics verified. Patient wishes to discharge home and is setup with [facility] for outpatient therapy. Patient states he has no further needs or concerns at this time. CM to follow for discharge planning needs that may arise. PCP: Bashir Specialists: None Preferred Pharmacy: [facility] Insurance: [facility] Prescription Benefit: None Living Will/HPOA: None LNOK: Nabil Carlota Living Arrangements: Patient is going to be staying at [facility] for few weeks while recovering Transportation: Friend DME/HHC: Patient has walker Disposition Plan: Patient to discharge home with family support and follow-up plans in place. Breana BRIDGESN, RN, CM
[2018-03-07] MEDS: Ferrous Sulfate 325 MG Tablet PO (13:01)
[2018-03-07 13:09] VITALS: BP 138/64; PULSE 94; RESP 16; TEMP 37.3; O2SAT 99
--- OUTSIDE RECORDS SUMMARY | 2018-05-01 11:33 | XMS RPT_ITS ---
:1940 Author Organization OHIP Care Team Providers Name Role Phone Henry Cortez Admitting Unavailable Henry Cortez Attending Unavailable SILVERIO RUTH Consulting Unavailable Henry Cortez Referring Unavailable Nicholas Camejo Primary Care Unavailable Jordan Dunne Attending Unavailable Ángel Lehman Referring Unavailable Henry Cortez Admitting Unavailable Henry Cortez Attending Unavailable Henry Cortez Referring Unavailable Nicholas Camejo Primary Care Unavailable HENRY CORTEZ MD Attending Unavailable PHYSICIAN, NOT RECORDED Primary Care Unavailable HENRY CORTEZ MD Admitting Unavailable ELIZABETH TAYLOR MD Consulting Unavailable HENRY CORTEZ MD Attending Unavailable REFERRING REFERRING, JEN LI WO ID~[id number] Primary Care Unavailable HENRY CORTEZ Admitting Unavailable HENRY CORTEZ Attending Unavailable SURJIT STAPLETON, DR MEJÍA Primary Care Unavailable SURJIT STAPLETON, DR MEJÍA Consulting Unavailable HENRY CORTEZ Consulting Unavailable PROBLEMS PROBLEMS DATE TYPE CONDITION / CODE ATTENDING STATUS SOURCE Unknown Z96.651 - Presence of Henry Cortez Active [facility] 8 right artificial knee Community joint / Hospital Z96.651(ICD-10) Repository Admitting PRESENCE LEFT HENRY CORTEZ Active [facility] 8 diagnosis [facility] Hospital / Z96.652(ICD-10) Repository Unknown PRESENCE LEFT HENRY CORTEZ Active [facility] 8 [facility]IFICIAL KNEE JOINT Hospital / Z96.652(ICD-10) Repository Unknown Z96.652 - Presence of Henry Cortez Active [facility] [place] 8 left artificial knee [facility] joint / Hospital Z96.652(ICD-10) Repository Unknown R94.31 - Abnormal [place], Active [facility] 8 electrocardiogram [facility] [ECG] [EKG] / Hospital R94.31(ICD-10) Repository PROCEDURES PROCEDURES No Procedure Records FoundRESULTS RESULTS DISCHARGE INSTRUCTION Observed: 03/07/2018 Status: F Source: [place] 9:16 AM [facility] [place] [place] Medical Records Department [address] [place] [address] Instructions for Home/Discharge Instructions 03/07/1814 MR#: [id number] Acct: [id number] Name: DAVID RECINOS Rep #: [id number] : 1940 77 From: Morro Gongora PA-C PCP: Nicholas Camejo Status: ADM IN Discharge Diet: No Restrictions Discharge Activity: May Not Drive May shower in (days): 1 - Turned dressing away from water Ice area for (Minutes): 20 - every hour while awake. Weight Bearing Status: Weight bearing as tolerated Elevate: Operative Extremity Additional Activity Instructions:: Wear elastic stockings for 2 weeks after your surgery. Call your doctor if your incision/area has: Continuous Slow Oozing, Sudden Increased Bleeding, Increased Pain/ Swelling, Increased Redness, Foul Smelling Discharge Call your doctor if you observe: Fever of 101 or Higher, Coldness, Increased Pain, Numbness or Tingling, Change in Color, Calf discomfort, Uncontrolled pain Remove Dressing in (days):: 4 - Okay to remove on March 11, 2018 Additional Instructions: Follow [facility] postop instructions Allergies/Adverse Reactions: Allergies No Known Allergies Allergy (Verified 03/06/18 07:15) Medications to take at Discharge Lisinopril/Hydrochlorothiazide [Zestoretic 20/25 Tablet] 1 tablet PO DAILY 12/31/17 Lovastatin [Mevacor] 20 mg PO DAILY 12/31/17 Tamsulosin HCl [Flomax] 0.4 mg PO DAILY 12/31/17 Acetaminophen [Tylenol] 1,000 mg PO Q8 #90 tablet 03/07/18 Famotidine [Pepcid] 20 mg PO DAILY #30 tablet 03/07/18 Meloxicam [Mobic] 7.5 mg PO BID #60 tablet 03/07/18 Oxycodone [Oxyir] 5 - 10 mg PO Q4H PRN PRN 5 Days #60 tablet 03/07/18 Rivaroxaban [Xarelto] 10 mg PO DAILY@1700 #11 tablet 03/07/18 Senna/Docusate Sodium [Senokot-S] 2 tablet PO BID #20 tablet 03/07/18 The following prescriptions were given: Oxycodone [Oxyir] 5 - 10 mg PO Q4H PRN PRN 5 Days #60 tablet PRN Reason: Mod-Severe Pain (-01/16) Acetaminophen [Tylenol] 1,000 mg PO Q8 #90 tablet Famotidine [Pepcid] 20 mg PO DAILY #30 tablet Rivaroxaban [Xarelto] 10 mg PO DAILY@1700 #11 tablet Meloxicam [Mobic] 7.5 mg PO BID #60 tablet Senna/Docusate Sodium [Senokot-S] 2 tablet PO BID #20 tablet Primary Care Physician: Nicholas Camejo [Primary Care Provider] - Test Results: Test results from this visit will be discussed in further detail at your follow-up appointment, if applicable. Please Follow Up With: [facility] physical therapy When: 03/11/18 @ 8:00 am Please Follow Up With: Morro Gongora PA-C When: 03/18/18 @ 9:00 am 03/07/18 0916 <Electronically signed by Morro Gongora PA-C> Date Morro Gongora PA-C CC: Nicholas Camejo BASIC METABOLIC Collected: 03/07/2018 Status: F Source: [place] PROFILE (BMP) 5:36 AM [facility] [place] TYPE CODE TESTS RESULT OUT OF RANGE REFERENCE UNITS LAB L501.0100 74-106 mg/dL High GLU 114 Result Comment: Fasting Glucose result from 100 to 125 mg/dL suggests IMPAIRED HOMEOSTASIS per A.D.A. criteria. Please note revised GLUCOSE reference range effective 2017. LAB L501.1000 7-18 mg/dL High BUN 19 LAB L501.1100 0.70-1.30 mg/dL Normal CREAT,SERUM 0.75 Result Comment: The validity of the calculated GFR AND GFRAA in patients over 70 years has not been determined. Clinical correlation is essential. LAB L501.1110 >60 mL/min Normal EST GFR 108 Result Comment: Non- GFR Calc LAB L501.1115 >60 mL/min Normal EST GFR - AA 130 Result Comment: GFR Calc LAB L501.1255 ml/min Normal Estimated CRCL 60.80 LAB L501.1300 10-20 RATIO High BUN/CRE 25.4 LAB L501.2200 8.5-10 mg/dL Low .1 CA 8.2 LAB L501.5300 136-14 mmol/L Normal 5 NA 139 LAB L501.5600 3.5-5. mmol/L Normal 1 K 3.7 LAB L501.5900 98-107 mmol/L Normal CL 106 LAB L501.6100 21.0-3 mmol/L Normal 2.0 CO2 25.0 LAB L501.6200 5-15 Normal GAP 8 Performed By: #### L500.2500 #### [facility] [address] [place], [address] CBC-COMPLETE BLOOD CNT Collected: 03/07/2018 Status: F Source: [place] NO DIFF 5:36 AM [facility] [place] TYPE CODE TESTS RESULT OUT OF RANGE REFERENCE UNITS LAB L100.1000 4.4-11.0 K/mm3 Normal WBC 10.2 LAB L100.1200 4.6-6.2 M/mm3 Low RBC 3.33 LAB L100.1300 13.0-16.5 g/dl Low HGB 10.5 LAB L100.1400 40-54 % Low HCT 31.8 LAB L100.1500 80-94 fL High MCV 95.5 LAB L100.1600 27.0-32.0 pg Normal MCH 31.5 LAB L100.1700 32-36 g/gl Normal MCHC 33.0 LAB L100.1810 11.6-14.6 % Normal RDW CV 14.1 LAB L100.1820 35.1-43.9 fl High RDW SD 46.5 LAB L100.1900 150-450 K/mm3 Normal PLT 226 LAB L100.2000 6.2-12.0 fl Normal MPV 9.7 Performed By: #### L100.0500 #### [facility] [address] [place], [address] OPERATIVE REPORT Observed: 03/06/2018 Status: F Source: [place] 10:22 AM [facility] Medical Records Department [address] [place] [address] Operative Report 03/06/18 1019 MR#: [id number] Acct: [id number] Name: DAVID RECINOS Rep #: [id number] : 1940 77 From: Henry Cortez MD PCP: Nicholas Camejo Status: ADM IN Location: [address] Report of Operation Date of Procedure: 03/06/18 Pre-Operative Diagnosis: Right knee primary osteoarthritis Post-Operative Diagnosis: Right knee primary osteoarthritis Surgery/Procedure Performed:: Right cruciate retaining press- fit total knee replacement Description of Surgical Findings:: Stable knee with good patella tracking social studies department chair: Radha Green Type of Anesthesia:: Spinal Anesthesiologist: Rodo Miller Special Medications: 2 g Ancef, 1 g TXA at incision, 1 g TXA closure, 10 mg Decadron, joint cocktail (5 mg Duramorph, 30 mL of 0.5% Ropivicaine, 1000 units of epinephrine, 30 mg of Toradol) Specimen's removed: Bony cuts Estimated Blood Loss (mL): 60 Fluids Replaced: 1600 mL crystalloid Description of Procedure: Implants used: 1. Hilda size 5 press-fit triathlon cruciate retaining distal femoral component 2. Hilda size 6 press-fit tibial baseplate 3. Hilda X3 11 mm CS polyethylene 4. Hilda X3 35 mm asymmetric patella Brief history operative indications: 77-year-old m with history of Right knee osteoarthritis with radiographic findings with loss of joint space, osteophyte formation and subchondral sclerosis. Failed conservative measures as mentioned in the H AND P. Discussion of total knee arthroplasty as well as risk and benefits were discussed the patient including but not limited to blood loss, DVTs, PEs, neurovascular damage, general risk of anesthesia including loss of life, and stiffness or instability were discussed with patient. Patient demonstrated understanding and was able to sign informed consent. Procedure: On the date of procedure patient's right lower extremity was marked in the preoperative area. The patient was then taken back to the operating room where the patient was placed on the table in the supine position. All bony prominences were identified a well-padded. Anesthesia assumed control of the C-spine and airway and remained controlled throughout the remainder of the procedure. A tourniquet was placed on the right upper thigh and the leg was prepped in a sterile fashion. The surgeon then scrubbed at this time .Upon reentering the room right lower extremity was draped in a standard orthopedic fashion. A timeout was then called and everyone agreed upon the side, the site, the procedure to be performed, patient's identity and antibiotics given. Esmarch bandage was used to exsanguinate the extremity and the tourniquet was placed up to 250 mmHg with the knee in flexion. A midline skin incision was made and sharp dissection was taken down through skin subcutaneous tissue and fat. The standard medial parapatellar incision was made and the patella was subluxed laterally. The standard deep MCL release was done and the fat pad was resected. Next our attention was directed to the femur. Navigation pins were placed, navigation was registered. The distal femoral cutting block was pinned into place and 9 mm of distal femur resection was completed. The distal femoral cut was verified with navigation. The knee was then placed in deep flexion in the standard [place] sizing guide was used to place the femoral component in 3 external rotation based on the posterior condyles. A size 5 4-in-1 cutting block was selected and pinned into place. The anterior cut was then made and checked for notching. The subsequent anterior chamfer cuts, posterior condylar cuts and posterior chamfer cuts were made while ensuring the MCL and LCL were protected. Our attention was then turned to the tibia where the navigation pins were placed, navigation was registered. [employer] tibial cutting guide was used to make the appropriate tibial cut 90 degrees from the mechanical axis. Navigation was then used to verify the cut. A size 6 tibial base plate was selected. the knee was flexed to 90 degrees and the soft tissues and posterior osteophytes were removed from the joint. 40 cc of the periarticular injection was injected into the posterior medial corner of the joint. The appropriate trials were then placed on the femur and tibia. A trial polyethylene was trialed to ensure proper balancing and stability of the knee. Patella tracking, was then verified and corrected appropriately as needed. The appropriate tibial internal rotation was then marked with a bovie. Our attention was then directed to the patella. The patella was everted and a flat resection was made. The lug holes were drilled and the patella trial was placed. Patellar tracking was checked and deemed appropriate. Once we were happy lug holes were drilled for the femur and trial components were removed. Cement was mixed at this time and the tourniquet was let down the tibia was subluxed and pinned into place and the keel was punched and the canal was reamed. Final components were verified and opened, and cement was mixed in a vacuum. [employer] Simplex cement was used. The wound was copiously irrigated with normal saline. When the cement was ready the press-fit components were impacted into place starting with the tibia, femur and finally the patella cemented into place. The trial poly component was placed and the knee was placed in full extension. All excess cement was removed in the process. Once the cement had cured the tracking, alignment and balance were verified and a size 11 mm polyethylene component was placed. Once the final components were placed the wound was copiously irrigated with normal saline solution and the periarticular injection was given. The wound was closed in a layer bridges fashion using #1 vicryl interrupted sutures for the arthrotomy, 2-0 interrupted Vicryl suture for the subcuticular layer and corby for final skin closure. A sterile compressive dressing was then placed. The patient was then awakened from anesthesia, transferred to the [facility] and transferred to the PACU for recovery. Post op plan DVT ppx: Xarelto due to previous DVT, thigh high compression stockings Follow up: in office in 2 weeks for wound check PT: to start POD #0 at hospital, outpatient PT should be arranged. vision. Grafts/Implants Used: Hilda triathlon press-fit - Complications None - Admit VTE Documentation VTE Present on Admission: No VTE Mechan Device Prophylaxis: SCD's, Thigh High SNEHA Hose VTE Pharm Prophylaxis ordered?: Yes 03/06/18 1022 <Electronically signed by Henry Cortez MD> Date Henry Cortez MD CC: Nicholas Cortez MD Signed KNEE 1 OR 2 VIEWS Observed: 03/06/2018 Status: F Source: [place] 9:08 AM [facility] REPOSIT[facility] Imaging Services [address] [place] [address] Knee 1 or 2 Views MR#: [id number] Acct: [id number] Name: JABIER RECINOSSUE Catalan Rep #: [id number] : 1940 M 77 From: Ravi Castro MD PCP: Nicholas Camejo Status: ADM IN Study: Knee 1 or 2 Views Date of Exam: 03/06/18 Exam# [id number] Ordering Dr: Henry Cortez MD STUDY: X-RAY - RIGHT KNEE REASON FOR EXAM: Male, 77 years old. Total knee replacement. TECHNIQUE: 2 view(s) of the knee. COMPARISON: None. FINDINGS: Normal visualized distal femur. Normal visualized proximal tibia and fibula. Normal proximal tibiofibular articulation. The patient is status post total knee replacement. There is good alignment. Postoperative soft tissue changes. RAD/Knee 1 or 2 Views IMPRESSION: Status post total knee replacement. There is good alignment. Postoperative soft tissue changes. Electronically Signed: Ravi Castro MD at 12:53 EST Tel [phone], Service support , CC: Nicholas Cortez MD Tax Associate Attorney: Signed ALBUMIN Collected: 02/27/2018 Status: F Source: [facility] 2:18 PM HOSPITAL REPOSITORY TYPE CODE TESTS RESULT OUT OF REFERENCE UNITS RANGE LAB 1751-7(LOIN 3.4-5.0 g/dL C) Albumin 3.6 SerPl-mCnc Performed By: #### 1751-7 #### [facility] [address] [place] [address] Tan Room Supervisor - Sarah ELAM [id number] CBC W/DIFF, AUTOMATED Collected: 02/11/2018 Status: F Source: [place] 10:30 AM [facility] [place] TYPE CODE TESTS RESULT OUT OF RANGE REFERENCE UNITS LAB L100.1000 4.4-11.0 K/mm3 Normal WBC 7.4 LAB L100.1200 4.6-6.2 M/mm3 Low RBC 3.84 LAB L100.1300 13.0-16.5 g/dl Low HGB 11.9 LAB L100.1400 40-54 % Low HCT 36.4 LAB L100.1500 80-94 fL High MCV 94.8 LAB L100.1600 27.0-32.0 pg Normal MCH 31.0 LAB L100.1700 32-36 g/gl Normal MCHC 32.7 LAB L100.1810 11.6-14.6 % Normal RDW CV 13.7 LAB L100.1820 35.1-43.9 fl High RDW SD 47.5 LAB L100.1900 150-450 K/mm3 Normal PLT 445 LAB L100.2000 6.2-12.0 fl Normal MPV 8.8 LAB L100.2100 47-70 % High NEUT% 75.5 LAB L100.2200 19-41 % Low LY% 15.6 LAB L100.2300 0-10 % Normal MONO% 7.0 LAB L100.2400 0-5 % Normal EO% 1.3 LAB L100.2500 0-1 % Normal BASO% 0.3 LAB L100.2550 0.0-0.9 % Normal IM GRAN % 0.300 Result Comment: IG% - Immature Granulocytes (promyelocytes, myelocytes and metamyelocytes) > 1% indicates that a LEFT SHIFT is Present. LAB L100.2620 2.0-7.7 X10 3/uL Normal Absolute Neut 5.6 LAB L100.2720 0.83-4.51 X10 3/ul Normal Absolute Lymph 1.16 Performed By: #### L100.0100 #### [facility] [address] [facility] [place], [address] BASIC METABOLIC Collected: 02/11/2018 Status: F Source: [place] PROFILE (BMP) 10:30 AM [facility] [place] TYPE CODE TESTS RESULT OUT OF RANGE REFERENCE UNITS LAB L501.0100 74-106 mg/dL Normal GLU 102 Result Comment: Fasting Glucose result from 100 to 125 mg/dL suggests IMPAIRED HOMEOSTASIS per A.D.A. criteria. Please note revised GLUCOSE reference range effective 2017. LAB L501.1000 7-18 mg/dL High BUN 27 LAB L501.1100 0.70-1.30 mg/dL Normal CREAT,SERUM 0.80 Result Comment: The validity of the calculated GFR AND GFRAA in patients over 70 years has not been determined. Clinical correlation is essential. LAB L501.1110 >60 mL/min Normal EST GFR 99 Result Comment: Non- GFR Calc LAB L501.1115 >60 mL/min Normal EST GFR - AA 120 Result Comment: GFR Calc LAB L501.1255 ml/min Normal Estimated CRCL 76.00 LAB L501.1300 10-20 RATIO High BUN/CRE 33.5 LAB L501.2200 8.5-10 mg/dL Normal .1 CA 8.7 LAB L501.5300 136-14 mmol/L Normal 5 NA 136 LAB L501.5600 3.5-5. mmol/L Normal 1 K 3.7 LAB L501.5900 98-107 mmol/L Normal CL 105 LAB L501.6100 21.0-3 mmol/L Normal 2.0 CO2 23.0 LAB L501.6200 5-15 Normal GAP 8 Performed By: #### L500.2500 #### [facility] [address] [facility] [place], [address] Observed: 02/11/2018 Status: F Source: [place] MRSA/SAID SCREEN 10:30 AM [facility] [place] MRSA/SAID SCRN S. AUREUS S. aureus Negative MRSA MRSA Negative Performed By: #### M100.651 #### [facility] [address] [facility] [place], [address] HISTORY AND PHYSICAL Observed: 02/11/2018 Status: F Source: [place] EXAM 8:40 AM [facility] [place] Medical Records Department [address] [place] [address] History and Physical 02/11/18 0839 MR#: [id number] Acct: [id number] Name: DAVID RECINOS Rep #: [id number] : 1940 77 From: Morro Gongora PA-C PCP: Nicholas Camejo Status: PRE IN Y Location: [facility] History and Physical DATE OF SURGERY: 03/06/2018 SCHEDULED PROCEDURE: Right Total Knee Arthroplasty HISTORY OF PRESENT ILLNESS: This is a 77-year-old male who has been having ongoing pain in bilateral knees for the past several years. Patient underwent a left total knee arthroplasty on January 23, 2018. He is doing well with regards to the left knee. Patient continues to have ongoing pain in the right knee. Pain is intermittent. He has increased pain going up and down stairs. Patient has difficult time with activities of daily living including walking any amount of distance. She feels unsafe using power equipment such as [employer]. Patient does complain of pain over the medial aspect of the right knee. He does have start up pain. Patient has been through formal physical therapy and home exercises with no relief in symptoms. He has tried rest and ice with elevation with no relief in symptoms. Patient has tried oral medications consisting of glucosamine/chondroitin with no relief in symptoms. He denies previous history of surgery on the right knee. Patient is currently using a walker postoperatively from the left knee. He was required a cane prior to his previous surgery. Patient has tried a brace in the past. Patient does have a medical history pertinent for hypertension, BPH, and a blood clot approximately 10 years ago when he had his right total hip replaced. We have obtained clearance from patient's primary care physician. After failing conservative measures and discussing all treatment options with Dr. Henry Cortez, the patient does wish to proceed with a right total knee arthroplasty. Patient currently denies any chest pain, shortness of breath, fevers chills, recent infections. REVIEW OF SYSTEMS: ROS: Const: Denies change in appetite, fever,or weight change. CV: Denies chest pain, heart murmur and irregular heartbeat. Resp: Denies cough, pneumonia, SOB, tuberculosis and wheezing. GI: Denies constipation, diarrhea, difficulty swallowing, heartburn, nausea, bloody stools and vomiting. : Urinary: denies incontinence. Musculo: Reports limp and trouble walking, but denies leg swelling and weakness. Skin: Denies Raynaud's, history of shingles and tattoo. Neuro: Denies ambulatory dysfunction, dizziness, numbness/tingling and tremor. Psych: Denies anxiety, insomnia and stress. Frederick/Lymph: Denies anemia, bleeding/bruising tendency and past transfusion. Reviewed, no changes. PAST MEDICAL HISTORY: Advance Care Plan: No Advance Directives Effective Date: 05/24/2017 PMH: Medical Problems: High Blood Pressure, Hypercholesterolemia, History Of Phlebitis, BPH Accidents: None Surgical Hx: Hernia Repair, Hip Replacement Rt Hip Replacement LT - (06/12/2017) SAW@[facility] LT TKR - (01/23/2018) SAW @ [facility] Anesthesia Complications: None Assistive Devices: Cane, Glasses - READING Reviewed and updated. SOCIAL HISTORY: SH: Marital: .Occupation: Retired.Work Status: Retired.Hand Dominance: Right-handed. Personal Habits: Cigarette Use: Never Smoked Cigarettes.Alcohol: Denies use.Drug Use: Denies Use.Enjoy Exercising: Exercises 1-3 x/month. Reviewed, no changes. VITALS: Ht: 68.5 Wt: 215lb Wt k.524 BMI: 32.2 BP: 124/66 Pulse: 62 Resp: 20 T: 98.6 T: 37.0C ALLERGIES: No Known Drug Allergy MEDICATIONS: Lisinopril-Hydrochlorothiazide 20-25 mg 1 by mouth every day, Lovastatin 20 mg 1 tab PO daily, Flomax 0.4 mg 1 cap PO daily, Oxycodone HCL 5 mg 1 by mouth every 6 hours PRE-OP EXAM: General appearance:NORMAL Other: Eyes: Conjunctivae and lids: NORMAL Pupils: ERR Ears, Nose, Mouth, and Throat: NORMAL Other: Inspection of lips, teeth and gums: NORMAL Other: Neck: Examination of neck: no masses noted. Respiratory: Assessment of respiratory effort: NORMAL Other: Auscultation of lungs: clear to auscultation no wheezes, rhonchi or rales. Cardiovascular: Auscultation of heart: regular rate and rhythm, no murmurs, gallops or rubs. Exam of carotid arteries: NORMAL Other: Gastrointestinal: Exam of abdomen: soft, nontender, nondistended bowel sounds present. PHYSICAL EXAMINATION: Patient does walk with a limping gait. Patient just did undergo a previous left total knee arthroplasty. Right knee has tenderness to palpation over the medial joint line. There is no effusion. Patient does have varus alignment. Range of motion: 0 of extension to 120 of flexion. Stable to varus/valgus stress test. Sensation intact to light touch. Neurovascularly intact. Left knee shows incision healing well without erythema or signs of infection. IMAGING STUDIES: X-rays of the right knee do reveal varus alignment with medial joint space narrowing, subchondral sclerosis, and osteophyte formation consistent with severe osteoarthritis. There is bony erosion in the medial compartment with tongue and groove erosions. IMPRESSION: 1. Severe right knee osteoarthritis 2. Postoperative left total knee arthroplasty 3. Hypertension 4. Hypercholesterolemia 5. BPH PLAN: Dr. Henry Cortez did discuss and review with the patient all treatment options including surgical versus nonsurgical options. Patient does wish to proceed with the above-stated procedure. Potential risks, benefits, and complications of the procedure were discussed in detail including but not limited to , infection, nerve and blood vessel damage, persistent pain, numbness, tingling, paresthesias, blood clot, pulmonary embolism, and requirement for possible further surgery. The patient expressed full understanding and has no further questions for the doctor. Patient does agree to proceed with the above-stated procedure and has signed the surgery consent form. This dictation was created using voice recognition software. Phonetic and/or grammatical errors may exist.. ___ I have re-examined the patient. There are no clinical changes since date of exam. ___ See progress notes for changes. ___ Dictated on admission Date: Time: Signature: 11/05/18 0840 <Electronically signed by Morro Gongora PA-C> Date Morro Gongora PA-C Cosigner Signature: Date (if applicable) CC: Nicholas Camejo; Morro ROJAS Signed DISCHARGE INSTRUCTION Observed: 01/24/2018 Status: F Source: [place] 8:26 AM [facility] Medical Records Department [address] [place] [address] [place] [address] Instructions for Home/Discharge Instructions 01/24/18823 MR#: [id number] Acct: [id number] Name: DAVID RECINOS Rep #: [id number] : 1940 77 From: Morro Gongora PA-C PCP: Nicholas Camejo Status: ADM IN Discharge Diet: No Restrictions Discharge Activity: May Not Drive May shower in (days): 1 - Turned dressing away from water Ice area for (Minutes): 20 - every hour while awake. Weight Bearing Status: Weight bearing as tolerated Elevate: Operative Extremity Additional Activity Instructions:: Wear elastic stockings for 2 weeks after your surgery. Call your doctor if your incision/area has: Continuous Slow Oozing, Sudden Increased Bleeding, Increased Pain/ Swelling, Increased Redness, Foul Smelling Discharge Call your doctor if you observe: Fever of 101 or Higher, Coldness, Increased Pain, Numbness or Tingling, Change in Color, Calf discomfort, Uncontrolled pain Remove Dressing in (days):: 4 - Okay to remove on January 28, 2018 Additional Instructions: Follow [facility] sports medicine postop instructions Allergies/Adverse Reactions: Allergies No Known Allergies Allergy (Verified 01/23/18 05:56) Medications to take at Discharge Lisinopril/Hydrochlorothiazide [Zestoretic 20/25 Tablet] 1 tablet PO DAILY 12/31/17 Lovastatin [Mevacor] 20 mg PO DAILY 12/31/17 Tamsulosin HCl [Flomax] 0.4 mg PO DAILY 12/31/17 Acetaminophen [Tylenol] 1,000 mg PO Q8 #90 tablet 01/24/18 Famotidine [Pepcid] 20 mg PO DAILY #30 tablet 01/24/18 Oxycodone [Oxyir] 5 - 10 mg PO Q4H PRN PRN 5 Days #60 tablet 01/24/18 Rivaroxaban [Xarelto] 10 mg PO DAILY@1700 #12 tablet 01/24/18 Senna/Docusate Sodium [Senokot-S] 2 tablet PO BID #20 tablet 01/24/18 The following prescriptions were given: Oxycodone [Oxyir] 5 - 10 mg PO Q4H PRN PRN 5 Days #60 tablet PRN Reason: Mod-Severe Pain (-01/16) Acetaminophen [Tylenol] 1,000 mg PO Q8 #90 tablet Famotidine [Pepcid] 20 mg PO DAILY #30 tablet Rivaroxaban [Xarelto] 10 mg PO DAILY@1700 #12 tablet Senna/Docusate Sodium [Senokot-S] 2 tablet PO BID #20 tablet Primary Care Physician: Nicohlas Camejo [Primary Care Provider] - Test Results: Test results from this visit will be discussed in further detail at your follow-up appointment, if applicable. Please Follow Up With: Physical therapy at [facility] When: 01/28/18 @ 8:30 am with Regan Please Follow Up With: Morro Gongora PA-C When: 02/04/18 @ 8:15 am 01/24/18 0826 <Electronically signed by Morro Gongora PA-C> Date Morro Gongora PA-C CC: Nicholas Camejo CBC-COMPLETE BLOOD CNT Collected: 01/24/2018 Status: F Source: [place] NO DIFF 6:30 AM [facility] [place] TYPE CODE TESTS RESULT OUT OF RANGE REFERENCE UNITS LAB L100.1000 4.4-11.0 K/mm3 High WBC 14.7 LAB L100.1200 4.6-6.2 M/mm3 Low RBC 3.70 LAB L100.1300 13.0-16.5 g/dl Low HGB 11.7 LAB L100.1400 40-54 % Low HCT 34.4 LAB L100.1500 80-94 fL Normal MCV 93.0 LAB L100.1600 27.0-32.0 pg Normal MCH 31.6 LAB L100.1700 32-36 g/gl Normal MCHC 34.0 LAB L100.1810 11.6-14.6 % Normal RDW CV 13.1 LAB L100.1820 35.1-43.9 fl Normal RDW SD 43.1 LAB L100.1900 150-450 K/mm3 Normal PLT 237 LAB L100.2000 6.2-12.0 fl Normal MPV 9.7 Performed By: #### L100.0500 #### [facility] [address] [place], [address] BASIC METABOLIC Collected: 01/24/2018 Status: F Source: [place] PROFILE (BMP) 6:30 AM [facility] [place] TYPE CODE TESTS RESULT OUT OF RANGE REFERENCE UNITS LAB L501.0100 74-106 mg/dL Normal GLU 101 Result Comment: Fasting Glucose result from 100 to 125 mg/dL suggests IMPAIRED HOMEOSTASIS per A.D.A. criteria. Please note revised GLUCOSE reference range effective 2017. LAB L501.1000 7-18 mg/dL Normal BUN 15 LAB L501.1100 0.70-1.30 mg/dL Normal CREAT,SERUM 0.92 Result Comment: The validity of the calculated GFR AND GFRAA in patients over 70 years has not been determined. Clinical correlation is essential. LAB L501.1110 >60 mL/min Normal EST GFR 85 Result Comment: Non- GFR Calc LAB L501.1115 >60 mL/min Normal EST GFR - AA 103 Result Comment: GFR Calc LAB L501.1255 ml/min Normal Estimated CRCL 70.53 LAB L501.1300 10-20 RATIO Normal BUN/CRE 16.4 LAB L501.2200 8.5-10 mg/dL Normal .1 CA 8.8 LAB L501.5300 136-14 mmol/L Normal 5 NA 141 LAB L501.5600 3.5-5. mmol/L Normal 1 K 3.6 LAB L501.5900 98-107 mmol/L High CL 108 LAB L501.6100 21.0-3 mmol/L Normal 2.0 CO2 25.0 LAB L501.6200 5-15 Normal GAP 8 Performed By: #### L500.2500 #### [facility] [address] [place], [address] OPERATIVE REPORT Observed: 01/23/2018 Status: F Source: [place] 10:14 AM [facility] [place] Medical Records Department [address] [place] [address] Operative Report 01/23/18 0719 MR#: [id number] Acct: [id number] Name: DAVID RECINOS Rep #: [id number] : 1940 77 From: Henry Cortez MD PCP: Nicholas Camejo Status: ADM IN Y [place] [facility] [place] [id number] Report of Operation Date of Procedure: 01/23/18 Pre-Operative Diagnosis: Left knee primary osteoarthritis Post-Operative Diagnosis: Left knee primary osteoarthritis Surgery/Procedure Performed:: Left total knee replacement Description of Surgical Findings:: Stable knee with good patella tracking. Cruciate retaining press-fit total knee replacement social studies department chair: Radha Green Type of Anesthesia:: Spinal Anesthesiologist: Rodo Miller Special Medications: 2 g Ancef, 1 g TXA at incision, 1 g TXA closure, 10 mg Decadron, joint cocktail (5 mg Duramorph, 30 mL of 0.5% Ropivicaine, 1000 units of epinephrine, 30 mg of Toradol) Specimen's removed: 2 g Ancef, 1 g TXA at incision, 1 g TXA closure, 10 mg Decadron, joint cocktail (5 mg Duramorph, 30 mL of 0.5% Ropivicaine, 1000 units of epinephrine, 30 mg of Toradol) Estimated Blood Loss (mL): 75 Fluids Replaced: 1300 ML crystalloid Description of Procedure: Implants used: 1. Hilda size 5 press-fit triathlon cruciate retaining distal femoral component 2. [place] size 6 press-fit tibial baseplate 3. Hilda X3 11 mm CS polyethylene 4. [place] X3 35 mm asymmetric patella Brief history operative indications: 77-year-old M with history of left knee osteoarthritis with radiographic findings with loss of joint space, osteophyte formation and subchondral sclerosis. Failed conservative measures as mentioned in the H AND P. Discussion of total knee arthroplasty as well as risk and benefits were discussed the patient including but not limited to blood loss, DVTs, PEs, neurovascular damage, general risk of anesthesia including loss of life, and stiffness or instability were discussed with patient. Patient demonstrated understanding and was able to sign informed consent. Procedure: On the date of procedure patient's left lower extremity was marked in the preoperative area. The patient was then taken back to the operating room where the patient was placed on the table in the supine position. All bony prominences were identified a well-padded. Anesthesia assumed control of the C-spine and airway and remained controlled throughout the remainder of the procedure. A tourniquet was placed on the left upper thigh and the leg was prepped in a sterile fashion. The surgeon then scrubbed at this time .Upon reentering the room left lower extremity was draped in a standard orthopedic fashion. A timeout was then called and everyone agreed upon the side, the site, the procedure to be performed, patient's identity and antibiotics given. Esmarch bandage was used to exsanguinate the extremity and the tourniquet was placed up to 250 mmHg with the knee in flexion. A midline skin incision was made and sharp dissection was taken down through skin subcutaneous tissue and fat. The standard medial parapatellar incision was made and the patella was subluxed laterally. The standard deep MCL release was done and the fat pad was resected. Next our attention was directed to the femur. Navigation pins were placed, navigation was registered. The distal femoral cutting block was pinned into place and 10 mm of distal femur resection was completed. The distal femoral cut was verified with navigation. The knee was then placed in deep flexion in the standard [place] sizing guide was used to place the femoral component in 3 external rotation based on the posterior condyles. A size 5 4-in-1 cutting block was selected and pinned into place. The anterior cut was then made and checked for notching. The subsequent anterior chamfer cuts, posterior condylar cuts and posterior chamfer cuts were made while ensuring the MCL and LCL were protected. Our attention was then turned to the tibia where the navigation pins were placed, navigation was registered. [employer] tibial cutting guide was used to make the appropriate tibial cut 90 degrees from the mechanical axis. Navigation was then used to verify the cut. A size 6 tibial base plate was selected. the knee was flexed to 90 degrees and the soft tissues and posterior osteophytes were removed from the joint. 40 cc of the periarticular injection was injected into the posterior medial corner of the joint. The appropriate trials were then placed on the femur and tibia. A trial polyethylene was trialed to ensure proper balancing and stability of the knee. Patella tracking, was then verified and corrected appropriately as needed. The appropriate tibial internal rotation was then marked with a bovie. Our attention was then directed to the patella. The patella was everted and a flat resection was made. The lug holes were drilled and the patella trial was placed. Patellar tracking was checked and deemed appropriate. Once we were happy lug holes were drilled for the femur and trial components were removed. Cement was mixed at this time and the tourniquet was let down the tibia was subluxed and pinned into place and the keel was punched and the canal was reamed. Final components were verified and opened, and cement was mixed in a vacuum. [employer] Simplex cement was used. The wound was copiously irrigated with normal saline. When the cement was ready the press-fit components were impacted into place starting with the tibia, femur and finally the patella cemented into place. The trial poly component was placed and the knee was placed in full extension. All excess cement was removed in the process. Once the cement had cured the tracking, alignment and balance were verified and a size 11 mm polyethylene component was placed. Once the final components were placed the wound was copiously irrigated with normal saline solution and the periarticular injection was given. The wound was closed in a layer bridges fashion using #1 vicryl interrupted sutures for the arthrotomy, 2-0 interrupted Vicryl suture for the subcuticular layer and corby for final skin closure. A sterile compressive dressing was then placed. The patient was then awakened from anesthesia, transferred to the [facility] and transferred to the PACU for recovery. Post op plan DVT ppx: ASA 81mg, thigh high compression stockings Follow up: in office in 2 weeks for wound check PT: to start POD #0 at hospital, outpatient PT should be arranged. Grafts/Implants Used: Hilda triathlon press-fit cruciate retaining - Complications None - Admit VTE Documentation VTE Present on Admission: No VTE Mechan Device Prophylaxis: SCD's, Thigh High SNEHA Hose VTE Pharm Prophylaxis ordered?: Yes 01/23/18 1014 <Electronically signed by Henry Cortez MD> Date Henry Cortez MD CC: Nicholas Camejo; Henry Cortez MD Signed KNEE 1 OR 2 VIEWS Observed: 01/23/2018 Status: F Source: [place] 6:59 AM [facility] [place] Imaging Services [address] [place] [address] [place] [address] Knee 1 or 2 Views MR#: [id number] Acct: [id number] Name: DAVID RECINOS Rep #: [id number] : 1940 77 From: Ravi Castro MD PCP: Nicholas Camejo Status: ADM IN Study: Knee 1 or 2 Views Date of Exam: 01/23/18 Exam# [id number] Ordering Dr: Henry Cortez MD STUDY: X-RAY - LEFT KNEE REASON FOR EXAM: Male, 77 years old. Postoperative total knee replacement. TECHNIQUE: 2 view(s) of the knee. COMPARISON: None. FINDINGS: Normal visualized distal femur. Normal visualized proximal tibia and fibula. Normal proximal tibiofibular articulation. The patient is status post total knee replacement. There is good alignment. Postoperative soft tissue changes. RAD/Knee 1 or 2 Views IMPRESSION: Status post total knee replacement. There is good alignment. Postoperative soft tissue changes Electronically Signed: Ravi Castro MD at 13:34 EDT Tel [phone], Service support , CC: Nicholas Cortez MD Tax Associate Attorney: Signed ALBUMIN, SERUM Collected: 01/21/2018 Status: F Source: [place] 3:48 PM [facility] [place] TYPE CODE TESTS RESULT OUT OF RANGE REFERENCE UNITS LAB L501.1800 3.2-5.0 g/dL Normal ALB 3.6 Performed By: #### L501.1800 #### [facility] [address] [facility] [place], [address] 12 LEAD ELECTROCARDIOGRAM Observed: 01/04/2018 Status: F Source: [place] 1:35 PM [facility] Cardiovascular Services [address] [facility] [place] [address] EKG - [facility] 12/31/17909 MR#: [id number] Acct: [id number] Name: DAVID RECINOS Rep #: [id number] : 1940 77 From: Jordan Dunne MD Attending Dr: Henry Cortez MD Status: PRE IN Ordering Dr: Henry Cortez MD Date: 12/31/17 Location: [facility] Sex: M C Admitted: Test Reason : Blood Pressure : / mmHG Vent. Rate : 063 BPM Atrial Rate : 063 BPM P-R Int : 212 ms QRS Dur : 100 ms QT Int : 418 ms P-R-T Axes : 043 054 040 degrees QTc Int : 427 ms Sinus rhythm with 1st degree A-V block Abnormal ECG Confirmed by VIBHA ALSTON, JORDAN ([id number]), newspaper photo editor JAVIER LUONG ([id number]) on 01/04/2018 1:35:30 PM Referred By: Henry Cortez Confirmed By:JORDAN DUNNE MD 01/04/18 1335 Date Jordan Dunne MD CC: Nicholas Cortez MD Date Dictated: 12/31/17909 Date Transcribed: 12/31/17909 Tax Associate Attorney: Signed HISTORY AND PHYSICAL Observed: 01/01/2018 Status: F Source: [place] EXAM 8:45 PM [facility] [place] Medical Records Department [address] [place] [address] History and Physical 01/01/182038 MR#: [id number] Acct: [id number] Name: DAVID RECINOS Rep #: [id number] : 1940 77 From: Morro Gongora PA-C PCP: Nicholas Camejo Status: PRE IN Y Location: [facility] History and Physical DATE OF SURGERY: 01/23/2018 SCHEDULED PROCEDURE: Left Total Knee Arthroplasty HISTORY OF PRESENT ILLNESS: This is a 77-year-old male who is been having ongoing pain in bilateral knees for the past several years. He states it is been progressively becoming worse. Patient's pain is aching in bilateral knees. It is increased with going up and down stairs, walking any amount of distance. Patient does complain of startup pain. Pain is over the medial joint line. Patient has difficult time with walking with activities of daily living. Patient has tried conservative measures consisting of rest with minimal relief. He has tried elevation with no relief in symptoms. Patient has been through formal physical therapy and home exercises with no relief in symptoms. He has been on oral medications consisting of glucosamine/chondroitin with no relief and symptom. He denies previous surgery on bilateral knees. Patient has been using a cane for ambulatory assistance for the past 1 year. He has also tried a brace with no relief in symptoms. Left total hip arthroplasty in June 2017 and is doing well. He did have postoperative urinary retention. Patient does have a history of hypertension as well as blood clot approximately 10 years ago when he had his right total hip replaced. He currently denies any chest pain, shortness of breath, fevers chills, recent infections. We are obtaining surgical clearance from patient's primary care physician Dr. Camejo. After failing conservative measures and discussing all treatment options patient would like to proceed with a left total knee arthroplasty. He is also planning on undergoing a right total knee arthroplasty in February 2018. REVIEW OF SYSTEMS: ROS: Const: Denies change in appetite, fever,or weight change. CV: Denies chest pain, heart murmur and irregular heartbeat. Resp: Denies cough, pneumonia, SOB, tuberculosis and wheezing. GI: Denies constipation, diarrhea, difficulty swallowing, heartburn, nausea, bloody stools and vomiting. : Urinary: denies incontinence. Musculo: Reports limp and trouble walking, but denies leg swelling and weakness. Skin: Denies Raynaud's, history of shingles and tattoo. Neuro: Denies ambulatory dysfunction, dizziness, numbness/tingling and tremor. Psych: Denies anxiety, insomnia and stress. Frederick/Lymph: Denies anemia, bleeding/bruising tendency and past transfusion. Reviewed, no changes. PAST MEDICAL HISTORY: Advance Care Plan: No Advance Directives Effective Date: 05/24/2017 PMH: Medical Problems: High Blood Pressure, Hypercholesterolemia, History Of Phlebitis Accidents: None Surgical Hx: Hernia Repair, Hip Replacement Rt Hip Replacement LT - (06/12/2017) [email or web address] Anesthesia Complications: None Assistive Devices: Cane, Glasses - READING Reviewed, no changes. SOCIAL HISTORY: SH: Marital: .Occupation: Retired.Work Status: Retired.Hand Dominance: Right-handed. Personal Habits: Cigarette Use: Never Smoked Cigarettes.Alcohol: Denies use.Drug Use: Denies Use.Enjoy Exercising: Exercises 1-3 x/month. Reviewed, no changes. VITALS: Ht: 68.5 Wt: 216lb Wt k.978 BMI: 32.4 BP: 132/82 Pulse: 68 Resp: 20 T: 97.3 T: 36.3C ALLERGIES: No Known Drug Allergy MEDICATIONS: Lisinopril-Hydrochlorothiazide 20-25 mg 1 by mouth every day, Lovastatin 20 mg 1 tab PO daily, Flomax 0.4 mg 1 cap PO daily PRE-OP EXAM: General appearance:NORMAL Other: Eyes: Conjunctivae and lids: NORMAL Pupils: ERR Ears, Nose, Mouth, and Throat: NORMAL Other: Inspection of lips, teeth and gums: NORMAL Other: Neck: Examination of neck: no masses noted. Respiratory: Assessment of respiratory effort: NORMAL Other: Auscultation of lungs: clear to auscultation no wheezes, rhonchi or rales. Cardiovascular: Auscultation of heart: regular rate and rhythm, no murmurs, gallops or rubs. Exam of carotid arteries: NORMAL Other: Gastrointestinal: Exam of abdomen: soft, nontender, nondistended bowel sounds present. PHYSICAL EXAMINATION: Examination of the left knee is cold to touch without erythema. Patient does walk with an antalgic gait. He has tenderness to palpation over the medial joint line. Patient does have varus alignment. Range of motion left knee: Lacks 10 of full extension to 120 of flexion. Stable to varus and valgus stress test. Sensation intact to light touch. Neurovascularly intact. IMAGING STUDIES: X-rays of bilateral knees reveals varus alignment with medial joint space narrowing, subchondral sclerosis, and osteophyte formation consistent with severe osteoarthritis. Bilateral knee show bony erosion and medial compartment most severe in the left with tongue and groove erosions. IMPRESSION: 1. Severe left knee osteoarthritis 2. Severe right knee osteoarthritis 3. Hypertension 4. History of blood clot 10 years ago PLAN: Dr. Cortez did discuss and review with the patient all treatment options including surgical versus nonsurgical options. Patient does wish to proceed with the above-stated procedure. Potential risks, benefits, and complications of the procedure were discussed in detail including but not limited to , infection, nerve and blood vessel damage, persistent pain, numbness, tingling, paresthesias, blood clot, pulmonary embolism, and requirement for possible further surgery. The patient expressed full understanding and has no further questions for the doctor. Patient does agree to proceed with the above-stated procedure and has signed the surgery consent form. ___ I have re-examined the patient. There are no clinical changes since date of exam. ___ See progress notes for changes. ___ Dictated on admission Date: Time: Signature: 01/01/182044 <Electronically signed by Morro Gongora PA-C> Date Morro Gongora PA-C Cosigner Signature: Date (if applicable) CC: Nicholas Camejo; Morro ROJAS Signed CBC W/DIFF, AUTOMATED Collected: 12/31/2017 Status: F Source: [place] 10:30 AM [facility] [place] TYPE CODE TESTS RESULT OUT OF RANGE REFERENCE UNITS LAB L100.1000 4.4-11.0 K/mm3 Normal WBC 7.3 LAB L100.1200 4.6-6.2 M/mm3 Low RBC 4.30 LAB L100.1300 13.0-16.5 g/dl Normal HGB 13.7 LAB L100.1400 40-54 % Normal HCT 40.0 LAB L100.1500 80-94 fL Normal MCV 93.0 LAB L100.1600 27.0-32.0 pg Normal MCH 31.9 LAB L100.1700 32-36 g/gl Normal MCHC 34.3 LAB L100.1810 11.6-14.6 % Normal RDW CV 13.8 LAB L100.1820 35.1-43.9 fl High RDW SD 45.9 LAB L100.1900 150-450 K/mm3 Normal PLT 262 LAB L100.2000 6.2-12.0 fl Normal MPV 9.8 LAB L100.2100 47-70 % Normal NEUT% 69.5 LAB L100.2200 19-41 % Low LY% 18.4 LAB L100.2300 0-10 % High MONO% 10.1 LAB L100.2400 0-5 % Normal EO% 1.6 LAB L100.2500 0-1 % Normal BASO% 0.3 LAB L100.2550 0.0-0.9 % Normal IM GRAN % 0.100 Result Comment: IG% - Immature Granulocytes (promyelocytes, myelocytes and metamyelocytes) > 1% indicates that a LEFT SHIFT is Present. LAB L100.2620 2.0-7.7 X10 3/uL Normal Absolute Neut 5.1 LAB L100.2720 0.83-4.51 X10 3/ul Normal Absolute Lymph 1.35 Performed By: #### L100.0100 #### [facility] [address] [place], [address] BASIC METABOLIC Collected: 12/31/2017 Status: F Source: [place] PROFILE (BMP) 10:30 AM [facility] [place] TYPE CODE TESTS RESULT OUT OF RANGE REFERENCE UNITS LAB L501.0100 74-106 mg/dL Normal GLU 91 Result Comment: Please note revised GLUCOSE reference range effective 2017. LAB L501.1000 7-18 mg/dL High BUN 30 LAB L501.1100 0.70-1.30 mg/dL Normal CREAT,SERUM 0.89 Result Comment: The validity of the calculated GFR AND GFRAA in patients over 70 years has not been determined. Clinical correlation is essential. LAB L501.1110 >60 mL/min Normal EST GFR 88 Result Comment: Non- GFR Calc LAB L501.1115 >60 mL/min Normal EST GFR - AA 106 Result Comment: GFR Calc LAB L501.1255 ml/min Normal Estimated CRCL 72.91 LAB L501.1300 10-20 RATIO High BUN/CRE 33.6 LAB L501.2200 8.5-10 mg/dL Normal .1 CA 8.5 LAB L501.5300 136-14 mmol/L Normal 5 NA 140 LAB L501.5600 3.5-5. mmol/L Normal 1 K 3.6 LAB L501.5900 98-107 mmol/L High CL 108 LAB L501.6100 21.0-3 mmol/L Normal 2.0 CO2 26.0 LAB L501.6200 5-15 Normal GAP 6 Performed By: #### L500.2500 #### [facility] [address] [facility] [place], [address] Observed: 12/31/2017 Status: F Source: [place] MRSA/SAID SCREEN 10:20 AM [facility] [place] MRSA/SAID SCRN S. AUREUS S. aureus Negative MRSA MRSA Negative Performed By: #### M100.651 #### [facility] [address] [facility] [place], [address] BMP Collected: 06/13/2017 Status: F Source: [place] 5:28 AM [facility] REPOSITORY TYPE CODE TESTS RESULT OUT OF REFERENCE UNITS RANGE LAB 1547-9 83-110 mg/dL GLUCOSE High 117 LAB NA(LOINC) 136-146 mEq/L Sodium Level 136 LAB K(LOINC) 3.5-5.1 mEq/L Potassium Level 3.7 LAB CL(LOINC) 98-107 mEq/L Chloride 105 LAB CO2(LOINC) 23-31 mEq/L CO2 25 LAB EBAL(LOINC mEq/L ) Electrolyte Balance 6.0 LAB BUN(LOINC) 7.0-18.0 mg/dL BUN High 20.0 LAB CRE(LOINC) 0.6-1.2 mg/dL Creatinine Lvl (s) 0.8 LAB BC(LOINC) 7-27 ratio BUN/Creatinine 25 Ratio LAB CA(LOINC) 8.4-10.2 mg/dL Low Calcium Lvl 8.3 Performed By: #### BMP, CBC, GFR, ADIFF, ANEU #### [facility] [address] [address] CBC Collected: 06/13/2017 Status: F Source: [facility] 5:28 AM [facility] REPOSITORY TYPE CODE TESTS RESULT OUT OF REFERENCE UNITS RANGE LAB WBC(LOINC) 4.60-10.80 10 3/mcL High WBC 13.00 LAB RBCCT(LOINC 4.04-6.13 10 6/mcL ) Low RBC 3.57 LAB HGB(LOINC) 14.0-18.0 G/dL Low Hgb 11.2 LAB HCT(LOINC) 42.0-52.0 % Low Hct 32.8 LAB MCV(LOINC) 80.0-94.0 fL MCV 91.7 LAB MCH(LOINC) 27.0-31.2 pg High MCH 31.4 LAB MCHC(LOINC) 31.8-35.4 G/dL MCHC 34.3 LAB RDW(LOINC) 11.5-14.5 % RDW 13.9 LAB PLT(LOINC) 130-400 10 3/mcL Platelet 184 LAB MPV(LOINC) 7.4-10.4 fL MPV 8.3 Performed By: #### BMP, CBC, GFR, ADIFF, ANEU #### [address] [address] .GFR Collected: 06/13/2017 Status: F Source: eleni 5:28 AM [facility] REPOSITORY TYPE CODE TESTS RESULT OUT OF REFERENCE UNITS RANGE LAB GFRAA(LOINC ml/min/1.73 ) sqm GFR 114 [place] Result Comment: GFR Population mean for , Non- Americans Ages 20-29 = 116 mL/min/1.73 sq.m. Ages 30-39 = 107 mL/min/1.73 sq.m. Ages 40-49 = 99 mL/min/1.73 sq.m. Ages 50-59 = 93 mL/min/1.73 sq.m. Ages 60-69 = 85 mL/min/1.73 sq.m. Ages 70+ = 75 mL/min/1.73 sq.m. Chronic Kidney Disease: Less than 60 mL/min/1.73 square meters End Stage Renal Disease: Less than 15 mL/min/1.73 square meters LAB GFRNO(LOINC) ml/min/1.73sqm GFR Non- >60 Result Comment: GFR Population mean for , Non- Americans Ages 20-29 = 116 mL/min/1.73 sq.m. Ages 30-39 = 107 mL/min/1.73 sq.m. Ages 40-49 = 99 mL/min/1.73 sq.m. Ages 50-59 = 93 mL/min/1.73 sq.m. Ages 60-69 = 85 mL/min/1.73 sq.m. Ages 70+ = 75 mL/min/1.73 sq.m. Chronic Kidney Disease: Less than 60 mL/min/1.73 square meters End Stage Renal Disease: Less than 15 mL/min/1.73 square meters Performed By: #### BMP, CBC, GFR, ADIFF, ANEU #### [facility] [address] [address] .AUTO DIFF Collected: 06/13/2017 Status: F Source: [facility] 5:28 AM [facility] REPOSITORY TYPE CODE TESTS RESULT OUT OF REFERENCE UNITS RANGE LAB JACOB(LOINC) 37.0-80.0 % High Neutrophil % 81.3 LAB LYM(LOINC) 10.0-50.0 % Low Lymphocyte % 8.7 LAB MON(LOINC) 1.7-13.0 % Monocyte % 9.8 LAB EO(LOINC) 0.0-7.0 % Eosinophil % 0.1 LAB BAS(LOINC) 0.0-2.5 % Basophil % 0.1 LAB ABLYM(LOIN 0.77-3.85 10 3/mcL C) Lymphocyte, 1.10 Absolute LAB SCOTT(LOINC 0.15-1.00 10 3/mcL ) High Monocyte, 1.30 Absolute LAB AEOS(LOINC 0.00-0.40 10 3/mcL ) Eosinophil, 0.00 Absolute LAB ABAS(LOINC 0.00-0.19 10 3/mcL ) Basophil, 0.00 Absolute Performed By: #### BMP, CBC, GFR, ADIFF, ANEU #### [address] [place], [place] [address] .NEUABS Collected: 06/13/2017 Status: F Source: eleni 5:28 AM [facility] REPOSITORY TYPE CODE TESTS RESULT OUT OF REFERENCE UNITS RANGE LAB ANEU(LOINC) 2.85-6.16 10 3/mcL High Neutrophil, 10.60 Absolute Performed By: #### BMP, CBC, GFR, ADIFF, ANEU #### [address] [address] XR FLUORO 1-2 HRS Observed: 06/12/2017 Status: F Source: eleni TECH TIME 1:06 PM [facility] REPOSITORY ORIGINAL Images acquired, not reported on this accession number. XR HIP LEFT W/PELVIS Observed: 06/12/2017 Status: F Source: eleni 4 VIEWS 10:14 AM [facility] REPOSITORY ORIGINAL XR HIP LEFT W/PELVIS portable 3 views CLINICAL STATEMENT: Status Post Arthroplasty , check prosthesis COMPARISON: None FINDINGS: There are bilateral hip prostheses that show satisfactory alignment. Postoperative changes in the left hip and pelvic soft tissues. Normal SI joints. IMPRESSION: Satisfactory alignment of left hip prosthesis. Interpreted By: Abdiel Velazquez MD Preliminary Report By: Abdiel Velazquez MD Electronically Signed By: Abdiel Velazquez MD Dictated Date: 06/12/2017 11:56:05 AM Prelim Date: 06/12/2017 11:56:05 AM Sign Date: 06/12/2017 11:56:54 AM CBC Collected: 05/29/2017 Status: F Source: eleni 10:00 AM [facility] REPOSITORY TYPE CODE TESTS RESULT OUT OF REFERENCE UNITS RANGE LAB WBC(LOINC) 4.60-10.80 10 3/mcL WBC 9.40 LAB RBCCT(LOINC 4.04-6.13 10 6/mcL ) RBC 4.58 LAB HGB(LOINC) 14.0-18.0 G/dL Hgb 14.3 LAB HCT(LOINC) 42.0-52.0 % Hct 42.3 LAB MCV(LOINC) 80.0-94.0 fL MCV 92.3 LAB MCH(LOINC) 27.0-31.2 pg MCH 31.2 LAB MCHC(LOINC) 31.8-35.4 G/dL MCHC 33.8 LAB RDW(LOINC) 11.5-14.5 % RDW 14.3 LAB PLT(LOINC) 130-400 10 3/mcL Platelet 261 LAB MPV(LOINC) 7.4-10.4 fL MPV 8.2 Performed By: #### CBC, ADIFF, ANEU, BMP, GFR #### [address] [address] .AUTO DIFF Collected: 05/29/2017 Status: F Source: [facility] 10:00 AM [facility] REPOSITORY TYPE CODE TESTS RESULT OUT OF REFERENCE UNITS RANGE LAB JACOB(LOINC) 37.0-80.0 % Neutrophil % 76.1 LAB LYM(LOINC) 10.0-50.0 % Lymphocyte % 14.2 LAB MON(LOINC) 1.7-13.0 % Monocyte % 7.9 LAB EO(LOINC) 0.0-7.0 % Eosinophil % 1.5 LAB BAS(LOINC) 0.0-2.5 % Basophil % 0.3 LAB ABLYM(LOIN 0.77-3.85 10 3/mcL C) Lymphocyte, 1.30 Absolute LAB SCOTT(LOINC 0.15-1.00 10 3/mcL ) Monocyte, 0.70 Absolute LAB AEOS(LOINC 0.00-0.40 10 3/mcL ) Eosinophil, 0.10 Absolute LAB ABAS(LOINC 0.00-0.19 10 3/mcL ) Basophil, 0.00 Absolute Performed By: #### CBC, ADIFF, ANEU, BMP, GFR #### [address] [address] .NEUABS Collected: 05/29/2017 Status: F Source: [facility] [place] 10:00 AM [facility] REPOSITORY TYPE CODE TESTS RESULT OUT OF REFERENCE UNITS RANGE LAB ANEU(LOINC) 2.85-6.16 10 3/mcL High Neutrophil, 7.10 Absolute Performed By: #### CBC, ADIFF, ANEU, BMP, GFR #### [facility] [address] [place], [place] [address] BMP Collected: 05/29/2017 Status: F Source: [facility] [place] 10:00 AM [facility] REPOSITORY TYPE CODE TESTS RESULT OUT OF REFERENCE UNITS RANGE LAB 1547-9 83-110 mg/dL Low GLUCOSE 81 LAB NA(LOINC) 136-146 mEq/L Sodium Level 140 LAB K(LOINC) 3.5-5.1 mEq/L Potassium Level 3.9 LAB CL(LOINC) 98-107 mEq/L Chloride 105 LAB CO2(LOINC) 23-31 mEq/L CO2 29 LAB EBAL(LOINC mEq/L ) Electrolyte Balance 6.0 LAB BUN(LOINC) 7.0-18.0 mg/dL BUN High 24.6 LAB CRE(LOINC) 0.6-1.2 mg/dL Creatinine Lvl (s) 0.9 LAB BC(LOINC) 7-27 ratio BUN/Creatinine 27 Ratio LAB CA(LOINC) 8.4-10.2 mg/dL Calcium Lvl 9.4 Performed By: #### CBC, ADIFF, ANEU, BMP, GFR #### [facility] [address] [place], [place] [address] .GFR Collected: 05/29/2017 Status: F Source: [facility] [place] 10:00 [facility] REPOSITORY TYPE CODE TESTS RESULT OUT OF REFERENCE UNITS RANGE LAB GFRAA(LOINC ml/min/1.73 ) sqm GFR 96 [place] Result Comment: GFR Population mean for , Non- Americans Ages 20-29 = 116 mL/min/1.73 sq.m. Ages 30-39 = 107 mL/min/1.73 sq.m. Ages 40-49 = 99 mL/min/1.73 sq.m. Ages 50-59 = 93 mL/min/1.73 sq.m. Ages 60-69 = 85 mL/min/1.73 sq.m. Ages 70+ = 75 mL/min/1.73 sq.m. Chronic Kidney Disease: Less than 60 mL/min/1.73 square meters End Stage Renal Disease: Less than 15 mL/min/1.73 square meters LAB GFRNO(LOINC) ml/min/1.73sqm GFR Non- >60 Result Comment: GFR Population mean for , Non- Americans Ages 20-29 = 116 mL/min/1.73 sq.m. Ages 30-39 = 107 mL/min/1.73 sq.m. Ages 40-49 = 99 mL/min/1.73 sq.m. Ages 50-59 = 93 mL/min/1.73 sq.m. Ages 60-69 = 85 mL/min/1.73 sq.m. Ages 70+ = 75 mL/min/1.73 sq.m. Chronic Kidney Disease: Less than 60 mL/min/1.73 square meters End Stage Renal Disease: Less than 15 mL/min/1.73 square meters Performed By: #### CBC, ADIFF, ANEU, BMP, GFR #### [facility] [place] [id number] ALLERGIES ALLERGIES DATE TYPE / CODE NAME / CODE REACTION SEVERITY SOURCE 03/06/2018 Drug No Known Unknown [facility] Allergy/4160 Allergies/F00 Hospital 12390(SNOMED 1923812(RXNOR Repository CT) M) ENCOUNTERS ENCOUNTERS ADMIT/DISCHARGE ACCOUNT NUMBER ADMITTING ENCOUNTER LOCATION SOURCE CLASS 03/06/2018/03/07/20 [id number] [place], Inpatient [facility] Michelle Figueroa Encounter [facility] ding:[id number] Repository : [id number]: 1 02/27/2018/02/28/20 [id number] DIEGO, Ambulatory [place] [facility] [place] :LAB 01/23/2018/01/25/20 [id number] Diego Inpatient [facility] 18 Henry Encounter [facility] ding:[id number] Repository : [id number]: 1 12/31/2017 [id number] Ambulatory BMSBuilding: [facility] Repository 06/12/2017/06/14/19 [id number] DIEGO ALST[place], Inpatient BBuilding:MS [place] Encounter URRoom: Health 0220Bed: B Foundation Repository 05/29/2017/05/29/[id number] ding:OPRS [facility] Repository PAYERS PAYERS ENCOUNTER GUARANTOR PAYER SUBSCRIBER SOURCE 03/06/2018 DAVID D Primary DAVID D [place] [id number] Insurance:MEDICARE DAVISDOB: Community [place] RDMOUNT PART A [facility] [id number] Number: Repository [id number]: [phone] [id number] [phone] () Date:2017-10-16 03/06/2018 Secondary NOT GIVENUNK [place] Insurance:SELF PAY [facility] Number: Effective Repository Date:2017-10-16 02/27/2018 DAVID D Primary DAVID D [place] DAVISDOB: Insurance:MedicarePol DAVISDOB: [facility] icy Number: [id number] Repository [place] RDMOUNT [id number] [address] [place], [place] Date: [facility] [address]Kdt: [phone] [facility] [address] [phone] () [address] [address]WR: 01/23/2018 DAVID D Primary DAVID D [place] [id number] Insurance:MEDICARE DAVISDOB: Community [place] RDM[place] PART A [facility] [id number] Number: Repository [id number]: [phone] [id number] [phone] () Date:2017-10-15 01/23/2018 Secondary NOT GIVENUNK [place] Insurance:SELF PAY [facility] Number: Effective Repository Date:2017-10-15 12/31/2017 DAVID D Primary DAVID D [place] [id number] Insurance:MEDICARE DAVISDOB: Community [place] RDMOUNT PART A [facility] [id number] Number: Repository [id number]: [phone] [id number] [phone] () Date:2017-10-15 12/31/2017 Secondary NOT GIVENUNK [place] Insurance:SELF PAY [facility] Number: Effective Repository Date:2017-12-31 06/12/2017 [facility] DAVISDOB: [facility] PART APolicy Number: [id number] Repository [place] RDMOUNT [id number] [address] [place], [place] Date:2017-05-24 - [place]DM[place], [address]Snm: [phone] [id number] [place] [address]Wyt: [phone] (HP) Name:MMail Code [address] (HP)Tel: 000) [phone], [place] 000-0000 ([place]) [address]MP: 06/12/2017 Secondary DVAID D [facility] Insurance:MEDICARE BRADYDOB: [facility] PART BPolicy Number: [id number] Repository [id number] [address] [place] Date:2017-05-24 - [place]DM[place], [id number] [place] [address]Cye: Name:[employer] LL[employer] (HP)Tel: (000) [address] [phone], 000-0000 (WP) [place] [address]WE: 05/29/2017 DAVID D Primary DAVID D [place] [facility]: Insurance:MEDICARE DAVISDOB: [facility] PART BPolicy Number: [id number] Repository [place] RDMOUNT [id number] [address] [place], [place] Date:2017-05-24 - [place], [address]Dhc: [phone] [id number] [place] [address]Pql: [phone] (HP) Name:[employer] (HP)Tel: (000) [address] [phone], 000-0000 ([place]) [place] [address]IJ:
== END 2018-03-07 14:55 | disposition home or self-care (01) | DRG 470 ==
LOC: ACINP 06:49 → MS3 03-07 06:54
PROVIDERS: Admitting Provider Specialist; Family Provider Family Medicine; PCP Family Medicine; Referring Provider Specialist; Visit Provider Specialist
PROC: 0SRC0J9 Replacement of Right Knee Joint with Synthetic Substitute, Cemented, Open Approach (ICD-10-PCS; CPT 27447; principal; 2018-03-06 09:00)
DX: M17.11 Unilateral primary osteoarthritis, right knee (principal); Z96.652 Presence of left artificial knee joint; I10 Essential (primary) hypertension; N40.0 Benign prostatic hyperplasia without lower urinary tract symptoms; E78.00 Pure hypercholesterolemia, unspecified
CPT/HCPCS: 36415; 73560; 80048; 85025; 85027; 87081; 97110; 97162; 97165; 97530; 99251; C1776; J7120; G0463

== ENCOUNTER → 2020-06-10 15:50 | Outpatient (CLI) | payer MEDICARE, SELFPAY ==
[2018-03-06 12:00] VITALS: BMI 32.2
[2020-06-10 16:38] LABS: Absolute Lymphocyte Count 2.22 X10^3/uL (0.83-4.51); Absolute Neutrophil Count 7.3 X10^3/uL (2.0-7.7); Basophil# 0.04 X10^3/uL; Basophil% 0.4 % (0-1); Eosinophil# 0.09 X10^3/uL; Eosinophils% 0.8 % (0-5); Hematocrit 39.4 % (40-54); Hemoglobin 13.2 g/dL (13.0-16.5); Lymphocyte # 2.22 X10^3/ul (4.0); Lymphocyte % 20.8 % (19-41); Mean Corp Hgb Conc 33.5 g/dL (32-36); Mean Corpuscular Hgb 31.4 pg (27.0-32.0); Mean Corpuscular Volume 93.6 fL (80-94); Mean Platelet Vol. 9.6 fl (6.2-12.0); Monocyte# 0.99 X10^3/uL; Monocyte% 9.3 % (0-10); NRBC Flagged by Analyzer 0 % (0-5); Neutrophil # 7.29 X10^3/uL (2.7-7.7); Neutrophil % 68.1 % (47-70); Platelet Count 305 K/mm3 (150-450); RBC Distribution Width CV 13.6 % (11.6-14.6); RBC Distribution Width SD 46.5 fl (35.1-43.9); Red Blood Count 4.21 M/mm3 (4.6-6.2); White Blood Count 10.7 K/mm3 (4.4-11.0)
[2020-06-10 17:11] LABS: Erythrocyte Sedimentation Rate 10 mm/hr (0-20)
== END ==
PROVIDERS: PCP Family Medicine; Visit Provider Specialist
DX: Z96.651 Presence of right artificial knee joint (principal)
CPT/HCPCS: 36415; 85025; 85652; 86140

== ENCOUNTER → 2020-06-14 | Outpatient (CLI) | payer MEDICARE, SELFPAY ==
[2018-03-06 12:00] VITALS: BMI 32.2
[2020-06-14 11:50] LABS: RBC /Synovial Fluid 0.223 10^6/uL (0); Synovial Fld Mononuclear WBC % 52.2 %; Synovial Fld Polynuclear WBC # 0.259 10^3/uL; Synovial Fld Polynuclear WBC % 47.8 %
[2020-06-14 11:52] LABS: AUTO B FLUID DILUENT BKGD CT WBC <0.1 RBC <0.01 (W<.1,R<.01); Appearance /Synovial Fluid Turbid (CLEAR); Color / Synovial Fluid Red (Pale Yellow); Viscosity / Synovial Fluid Liquid (HIGH)
[2020-06-14 12:59] LABS: Neutrophil 50 % (0-25)
[2020-06-14 13:00] LABS: Lymph 19 %; Monocyte /Synovial Fluid 32 %
[2020-06-14 13:01] LABS: Synovial Fld Mononuclear WBC # 0.283 10^3/ul
[2020-06-14 13:02] LABS: Source / Synovial Fluid NOT INDICATED
[2020-06-15 12:36] LABS: Body Fluid QC Type(s) BF3Q,BF4Q
[2020-06-15 12:37] LABS: Pathologist Comment Reviewed
== END | disposition home or self-care (01) ==
LOC: LABSPEC 10:32
PROVIDERS: PCP Family Medicine; Referring Provider Specialist; Visit Provider Specialist
DX: Z96.651 Presence of right artificial knee joint (principal)
CPT/HCPCS: 87015; 87070; 87075; 87102; 87116; 87205; 87206; 89050; 89051; 89060